=== PATIENT | female | born 1940 | race Caucasian/White ===

== ENCOUNTER → 2016-06-15 | Outpatient (CLI) | payer OTHER ==
[~2016-06-15] MED LIST: BUSP1TAB46 PO; CHOL2000 PO; MULT-506 PO; PANT40TA PO; SUMA50TA15 PO
--- NOTE | 2016-06-15 12:33 | DIAGNOSTIC IMAGING REPORT ---
CHEST 2 VIEWS ROUTINE CLINICAL HISTORY: Persistent cough COMPARISON STUDY: 05/20/2015 FINDINGS: The cardiac and mediastinal contours are normal. There is no evidence of focal pulmonary consolidation. There is no evidence of failure. No pleural effusions are visualized.[ There are postsurgical changes present within the cervical spine IMPRESSION: No active disease in the chest. Electronically signed by: Jose Angel Pond M.D. 06/15/2016 12:31 PM
== END | disposition home or self-care (01) ==
LOC: C.RADBC 12:09
PROVIDERS: ATTEND Internal Medicine Geriatric Medicine
DX: R05 Cough (principal)

== ENCOUNTER → 2016-08-31 | Outpatient (CLI) | payer OTHER ==
[2016-08-31 13:07] LABS: BASO % 0.5 %; BASO ABS # 0.04 K/uL (0-0.2); COMPLETE YES; EOS % 1.3 %; HEMATOCRIT 38.9 % (37-47); IG% 0.2 %; LYMPH % 30.7 %; LYMPH ABS # 2.55 K/uL (1.2-3.4); MEAN CELL VOLUME 92.8 fL (80-100); MEAN CORPUSCULAR HEMOGLOBIN 31.5 pg (25-34); MEAN CORPUSCULAR HGB CONC 33.9 g/dl (32-36); MONO % 10.7 %; NEUT % 56.6 %; PLATELET COUNT 311 K/uL (130-400); RED BLOOD COUNT 4.19 M/uL (4.2-5.4)
[2016-08-31 14:17] LABS: CALCIUM 9.5 mg/dl (8.5-10.1); GLUCOSE 83 mg/dl (70-99)
[2016-08-31 14:18] LABS: BLOOD UREA NITROGEN 18 mg/dl (7-18); BUN/CREATININE RATIO 15.1 (10-20); CARBON DIOXIDE 25 mmol/L (21-32); CHLORIDE 109 mmol/L (98-107); CHOLESTEROL 266 mg/dl (0-200); HDL CHOLESTEROL 67 mg/dl; LDL CHOLESTEROL CALCULATED 161 mg/dl; POTASSIUM 4.1 mmol/L (3.5-5.1); SODIUM 140 mmol/L (136-145); TRIGLYCERIDES 192 mg/dl (0-150); VERY LOW DENSITY LIPOPROT CALC 38 mg/dl
--- NOTE | 2016-09-07 07:52 | CODING QUERY MEDICAL NECESSITY ---
SUPPORTING DIAGNOSIS NEEDED A supporting diagnosis is required for the test/procedure performed on this patient in order for us to be reimbursed by the patient's insurance. Please provide a supporting diagnosis for the following test/procedure listed below next to the test name along with your signature. *If there is no additional diagnosis for this patient that would support the following test/procedure please document that below next to the test/procedure. Test(s)/Procedure(s) that require a supporting diagnosis: DOS 08/31 * Vitamin D DIAGNOSIS: Provider Signature: Date: Thank you Keerthi Maloney Health Information Management Once completed, please kindly fax back to [phone] For questions please call [phone]
== END | disposition home or self-care (01) ==
LOC: C.LABPBG 09:14
PROVIDERS: ATTEND Internal Medicine Geriatric Medicine
DX: M19.90 Unspecified osteoarthritis, unspecified site (principal); D47.2 Monoclonal gammopathy; R35.0 Frequency of micturition; M54.16 Radiculopathy, lumbar region; I10 Essential (primary) hypertension; E04.2 Nontoxic multinodular goiter; M85.80 Other specified disorders of bone density and structure, unspecified site

== ENCOUNTER → 2017-08-11 | Outpatient (CLI) | payer OTHER ==
[2017-08-11 12:31] LABS: BASO % 0.5 %; BASO ABS # 0.04 K/uL (0-0.2); EOS % 1.5 %; EOS ABS # 0.12 K/uL (0-0.5); HEMATOCRIT 38.3 % (37-47); HEMOGLOBIN 12.9 g/dL (12.0-16.0); IG# 0.01 K/uL (0.00-0.02); LYMPH % 37.3 %; MEAN CELL VOLUME 93.9 fL (80-100); MEAN CORPUSCULAR HEMOGLOBIN 31.6 pg (25-34); MEAN CORPUSCULAR HGB CONC 33.7 g/dl (32-36); MEAN PLATELET VOLUME 9.9 fL (7.4-10.4); MONO % 9.8 %; MONO ABS # 0.79 K/uL (0.11-0.59); NEUT % 50.8 %; NEUT ABS # 4.08 K/uL (1.4-6.5); PLATELET COUNT 309 K/uL (130-400); RED CELL DISTRIBUTION WIDTH CV 13.8 % (11.5-14.5); RED CELL DISTRIBUTION WIDTH SD 47.3 fL (36.4-46.3); WHITE BLOOD COUNT 8.04 K/uL (4.8-10.8)
[2017-08-11 13:20] LABS: ALBUMIN 3.9 gm/dl (3.4-5.0); BLOOD UREA NITROGEN 16 mg/dl (7-18); CARBON DIOXIDE 26 mmol/L (21-32); CHOLESTEROL 262 mg/dl (0-200); CREATININE 0.92 mg/dl (0.60-1.20); POTASSIUM 4.1 mmol/L (3.5-5.1); SODIUM 138 mmol/L (136-145)
[2017-08-11 13:22] LABS: CALCIUM 9.3 mg/dl (8.5-10.1); GLUCOSE 81 mg/dl (70-99); TOTAL PROTEIN 8.6 gm/dl (6.4-8.2)
[2017-08-11 13:23] LABS: ALKALINE PHOSPHATASE 83 U/L (45-117); ALT/SGPT 30 U/L (12-78); AST/SGOT 22 U/L (15-37)
[2017-08-11 13:25] LABS: LDL CHOLESTEROL CALCULATED 158 mg/dl
== END | disposition home or self-care (01) ==
LOC: C.LABPBG 09:39
PROVIDERS: ATTEND Internal Medicine Geriatric Medicine
DX: M19.90 Unspecified osteoarthritis, unspecified site (principal); E78.5 Hyperlipidemia, unspecified; G43.909 Migraine, unspecified, not intractable, without status migrainosus; R10.9 Unspecified abdominal pain; I10 Essential (primary) hypertension; D47.2 Monoclonal gammopathy; E04.2 Nontoxic multinodular goiter

== ENCOUNTER → 2017-10-04 | Outpatient (CLI) | payer OTHER ==
[~2017-10-04] MED LIST changes: -BUSP1TAB46 PO; -CHOL2000 PO; +CHOL50006 PO; -PANT40TA PO; +SERT25TA PO; +TRAM-10 PO; +VERA120T15 PO
== END | disposition home or self-care (01) ==
LOC: C.MAMM 08:52
PROVIDERS: ATTEND Physician Assistant
DX: Z00.00 Encounter for general adult medical examination without abnormal findings (principal); M85.852 Other specified disorders of bone density and structure, left thigh

== ENCOUNTER 2019-06-18 05:52 | Inpatient (IN) ==
--- NOTE | 2019-06-07 08:18 | Anesthesiology Consultation ---
Date of Service June 07, 2019 Assessment & Plan (1) Encounter for pre-operative examination: Awaiting review preop testing (labs, CXR). Chart Review Chart Review: Patient seen in Pre Admission Testing Teaching & Discussion Pre-Anesthesia Teaching/Discussion Notes: Instructed NPO after midnight before surgery,except medications with 15 cc of water. Medication instructions provided according to the PAT guidelines. History Surgery Operation Date: 06/18/19 07:30 Proposed Procedures p L5-S1 Posterior Lumbar Interbody Fusion - Maico Najera DO Height/Weight Height: 5 ft Weight: 57.3 kg Allergies Allergy/AdvReac Type Severity Reaction Status Date / Time Iodinated Contrast Media Allergy Intermediate IVP DYE- Verified 06/04/19 08:14 HIVES Tetracyclines Allergy Intermediate HIVES,SWELL Verified 06/04/19 08:14 ING acetaminophen [From Percocet] AdvReac Mild Verified 06/04/19 08:14 adhesive AdvReac Mild BLISTERS Verified 06/04/19 08:14 oxycodone [From Percocet] AdvReac Mild Verified 06/04/19 08:14 alendronate sodium AdvReac dyspepsia Verified 06/04/19 08:14 [From Fosamax] atorvastatin AdvReac myalgias Verified 06/04/19 08:14 cephalexin [From Keflex] AdvReac rash Verified 06/04/19 08:14 duloxetine [From Cymbalta] AdvReac Falls Verified 06/04/19 08:14 lisinopril AdvReac cough Verified 06/04/19 08:14 paroxetine [From Paxil] AdvReac profuse Verified 06/04/19 08:14 sweating risedronate sodium AdvReac dyspepsia Verified 06/04/19 08:14 [From Actonel] rosuvastatin [From Crestor] AdvReac myalgias Verified 06/04/19 08:14 Medications Home Medications Medication Instructions Recorded Confirmed Last Taken cholecalciferol (vitamin D3) 125 5,000 units PO QAM tab 12/18/18 06/04/19 12/18/18 mcg (5,000 unit) tablet tramadol 50 mg tablet 50 mg PO TID PRN #90 tab 12/18/18 06/04/19 Unknown verapamil 120 mg 24 hr 120 mg PO QAM #90 cap 12/18/18 06/04/1912/18/19 capsule,extended release pantoprazole 40 mg tablet,delayed 40 mg PO QAM #90 tab 03/06/19 06/04/19 Unknown release sumatriptan succinate 50 mg tablet 50 mg PO .COMPLEX PRN tab 04/09/19 06/04/19 Unknown pravastatin 10 mg tablet 10 mg PO DAILY #90 tab 04/10/19 06/04/19 Unknown tramadol 50 mg tablet 50 mg PO Q6 PRN #30 tab 05/09/19 06/04/19 Unknown sertraline 50 mg tablet 50 mg PO QAM #30 tab 05/15/19 06/04/19 Unknown Past Medical History Medical History Chronic kidney disease, stage 3 (moderate) Chronic osteoarthritis Depression with anxiety Dyslipidemia (high LDL; low HDL) Gastroesophageal reflux controlled Headache, migraine History of nephrolithiasis History of small bowel obstruction remote hx - s/p surgical intervention Hypertension Irritable bowel syndrome Lumbar disc herniation + radiculopathy MGUS (monoclonal gammopathy of unknown significance) follows with heme/onc (Dr. Saucedo) Multiple thyroid nodules Osteopenia Spinal stenosis Exercise / Class Metabolic Activity III < 4 Walking/Shop/Light housework Past Family History Family History Mother Coronary heart disease Myocardial infarction Father Coronary heart disease Myocardial infarction Sister Diabetes Coronary heart disease Pacemaker Hx of CABG Post-operative nausea and vomiting Past Surgical History Surgical History H/O arthroscopy of knee H/O resection of small bowel History of cervical spinal surgery + hardware present History of colonoscopy History of hernia repair History of hysterectomy History of laparoscopy History of lumbar laminectomy History of toe surgery Rt great toe; hardware present S/P trigger finger release Past Anesthesia History No Hx of Anesthesia Complications (except post-op nausea) and No Family Hx of Anesthesia Complications (except sister with PONV) History of PONV History of PONV (+ nausea) and Hx of Motion Sickness Social History Smoking Status: Never smoker Do You Dip or Chew Tobacco: No Hx Alcohol Use: Yes alcohol intake frequency: holidays/special occasions only Hx Substance Use: No substance use type: does not use Review of Systems Reflux controlled. Patient denies chest pain, shortness of breath, cough, wheezing, palpitations. Physical Exam Vital Signs VITALS BP 120/65 P 87 TEMP 97.8 SP02 95%RA RESP 18 PHYSICAL Full neck and c-spine range of motion. Full TMJ range of motion. TMD 2.5 finger breaths Mallampati Score 2 Dentition: intact, upper right/left sides permanent bridges Lungs: clear throughout to auscultation Cardiac: regular rate and rhythm, no murmurs noted Spine: normal Carotid arteries: negative bruit Extremities: no edema Testing Electrocardiogram Date: 04/09/19 SR at 89bpm. "Unchanged" compared to 07/2018. Stress Test Date: 04/20/19 Type: DSE Normal dobutamine ECHO without evidence of inducible ischemia. Mild to moderate MR. Mild cLVH. 85% MPHR.
--- NOTE | 2019-06-07 08:30 | PAT Medication Instructions ---
Medication Instructions Date of Service June 07, 2019 Home Medications Medication Instructions Recorded pantoprazole 40 mg tablet,delayed 40 mg PO QAM #90 tab 03/06/19 release pravastatin 10 mg tablet 10 mg PO DAILY #90 tab 04/10/19 tramadol 50 mg tablet 50 mg PO Q6 PRN #30 tab 05/09/19 sertraline 50 mg tablet 50 mg PO QAM #30 tab 05/15/19 Continue as directed cholecalciferol (vitamin D3) 125 mcg (5,000 unit) tablet 5,000 units PO QAM tramadol 50 mg tablet 50 mg PO TID PRN verapamil 120 mg 24 hr capsule,extended release 120 mg PO QAM pantoprazole 40 mg tablet,delayed release 40 mg PO QAM sumatriptan succinate 50 mg tablet 50 mg PO .COMPLEX PRN pravastatin 10 mg tablet 10 mg PO DAILY tramadol 50 mg tablet 50 mg PO Q6 PRN sertraline 50 mg tablet 50 mg PO QAM DO NOT take the morning of surgery cholecalciferol (vitamin D3) 125 mcg (5,000 unit) tablet 5,000 units PO QAM Take morning of surgery With a small sip of water, OTHERWISE NOTHING TO EAT OR DRINK AFTER MIDNIGHT: tramadol 50 mg tablet 50 mg PO TID PRN (okay to take up to 4 hours prior to surgery if needed) verapamil 120 mg 24 hr capsule,extended release 120 mg PO QAM pantoprazole 40 mg tablet,delayed release 40 mg PO QAM sumatriptan succinate 50 mg tablet 50 mg PO .COMPLEX PRN (if needed) pravastatin 10 mg tablet 10 mg PO DAILY tramadol 50 mg tablet 50 mg PO Q6 PRN (okay to take up to 4 hours prior to surgery if needed) sertraline 50 mg tablet 50 mg PO QAM Take evening before surgery tramadol 50 mg tablet 50 mg PO TID PRN (if needed) sumatriptan succinate 50 mg tablet 50 mg PO .COMPLEX PRN (if needed) tramadol 50 mg tablet 50 mg PO Q6 PRN (if needed) Other Notes If you have any questions please call us at [phone] or [phone] or [phone] or [phone]
--- NOTE | 2019-06-07 08:55 | XRay Report ---
XR chest Pre-admission PA/Lat CLINICAL HISTORY: 79 years-old Female presenting with preoperative assessment. TECHNIQUE: PA and lateral views of the chest were obtained. COMPARISON: 08/16/2011. FINDINGS: Atherosclerosis of the aortic arch. Cardiac silhouette normal in size. Lungs are hyperinflated. No fo rosa opacity. No pleural effusion or pneumothorax. Anterior cervical fusion hardware. Mild degenerativ e changes of the spine. Upper abdomen normal. IMPRESSION: 1. Hyperinflation could suggest underlying emphysema or other obstructive lung disease versus an exu berant inspiratory effort. No other evidence of acute cardiopulmonary disease. ACT 112: Negative or not required by law. Electronically signed by: Rafael Conde M.D. 06/07/2019 8:54 AM
[2019-06-07 10:15] LABS: Basophils # (auto) 0.03 K/uL (0-0.2); Basophils % (auto) 0.5 %; Hematocrit (blood only) 37.3 % (37-47); Hemoglobin 12.6 g/dL (12.0-16.0); Immature Granulocytes # (auto) 0.01 K/uL (0.00-0.02); Immature Granulocytes % (auto) 0.2 %; Lymphocytes # (auto) 1.98 K/uL (1.2-3.4); Lymphocytes % (auto) 30.1 %; Mean Corpuscular Hemoglobin 31.7 pg (25-34); Mean Corpuscular Hgb Conc 33.8 g/dL (32-36); Mean Platelet Volume 9.8 fL (7.4-10.4); Monocytes # (auto) 0.79 K/uL (0.11-0.59); Neutrophils # (auto) 3.56 K/uL (1.4-6.5); Neutrophils % (auto) 54.2 %; Platelet Count 310 K/uL (130-400); RDW Coefficient of Variation 13.3 % (11.5-14.5); RDW Standard Deviation 46.2 fL (36.4-46.3); Red Blood Count 3.97 M/uL (4.2-5.4); White Blood Count 6.57 K/uL (4.8-10.8)
[2019-06-07 10:27] LABS: BUN Creatinine Ratio 17.1 (10-20); Calcium 9.1 mg/dl (8.5-10.1); Creatinine Clr Calc Pharmacy 35.3 ml/min; Est GFR (African American) 59.6; Est GFR (Non-African American) 51.4; Potassium 3.8 mmol/L (3.5-5.1)
[2019-06-07 10:29] LABS: Partial Thromboplastin Ratio 0.8; Partial Thromboplastin Time 22.9 Seconds (21.0-31.0); Prothrombin Time 10.3 Seconds (9.0-12.0)
--- NOTE | 2019-06-15 09:02 | History and Physical Report ---
DATE OF ADMISSION: 06/15/2019 CHIEF COMPLAINT: Back pain, lower extremity difficulty. Sharp in nature, radiating in nature. ____ ability to ambulate. Ongoing now for several months, refractory to conservative management. PAST MEDICAL HISTORY: Kidney disease, osteoarthritis, anxiety, high cholesterol, reflux, irritable bowel. PAST SURGICAL HISTORY: Numerous including knee surgery, spinal surgery, hernia repair, hysterectomy, laminectomy and toe surgery. FAMILY HISTORY: Coronary artery disease and myocardial infarction. SOCIAL HISTORY: She is , retired, nonsmoker, nonalcohol user. REVIEW OF SYSTEMS: She denies any blurred vision, double vision, tinnitus or vertigo, feeling of malaise. Denies chest pain, palpitations. Denies shortness of breath, wheezing. Denies nausea, vomiting, urgency, frequency. Denies urgency, frequency, dysuria. Her major positive review is musculoskeletal lower extremity difficulty. OBJECTIVE: GENERAL: She is alert, oriented. VITAL SIGNS: Blood pressure 130/80, pulse 80. HEENT: Pupils react to light and accommodation. Ear, nose and throat clear. CARDIAC: Normal S1, S2, no S3. LUNGS: Clear to auscultation. No rales, rhonchi, wheezing. ABDOMEN: Soft, nontender. IMAGES: Demonstrate severely degenerative segment and spondylolisthesis L5-S1. PLAN: Includes a PLIF procedure L5-S1 lumbar spine.
[~2019-06-18 05:52] MED LIST changes: +CEFAZOLIN: ALLERGY NOTED TO ORDERED MEDICATION SCH; -CHOL50006 PO; -MULT-506 PO; -SERT25TA PO; -SUMA50TA15 PO; -TRAM-10 PO; -VERA120T15 PO
[2019-06-18] MEDS ORDERED: SODIUM CHLORIDE 0.9% 1,000 ML IV SCH (06:00)
[2019-06-18] MEDS ORDERED: LR 15ML/HR IV SCH ×2 (06:00)
[2019-06-18] MEDS ORDERED: CLINDAMYCIN 600 MG/54 ML BAG IV SCH (06:00)
[2019-06-18] MEDS ORDERED: ACETAMINOPHEN 1000 MG/100 ML IV IV SCH (06:00)
[2019-06-18] MEDS ORDERED: CEFAZOLIN 2000MG 2,000 MG/15 ML SYR IV SCH (06:00)
[2019-06-18] MEDS ORDERED: ROCURONIUM BROMIDE 10 MG/ML 5 ML VIAL ONE (06:36)
[2019-06-18] MEDS ORDERED: fentaNYL citrate 100 MCG/2 ML VIAL ONE (06:36)
[2019-06-18] MEDS ORDERED: ONDANSETRON INJ 2 MG/ML 2 ML VIAL ONE (06:36)
[2019-06-18] MEDS ORDERED: HYDROmorphone INJ 2 MG/ML SYR/VIAL ONE (06:36)
[2019-06-18] MEDS ORDERED: DEXAMETHASONE SOD INJ 4 MG/ML VIAL ONE (06:36)
[2019-06-18] MEDS ORDERED: SODIUM CHLORIDE 0.9% INJ 10 ML VIAL ONE (06:37)
[2019-06-18] MEDS ORDERED: LARYING-O-JET KIT (LTA) ONE (06:39)
[2019-06-18] MEDS ORDERED: PROMETHAZINE HCL 6.25 MG in SODIUM CHLORIDE 0.9% 50 ML IV PRN (06:58)
[2019-06-18] MEDS ORDERED: HYDROmorphone INJ 2 MG/ML SYR/VIAL IV PRN (06:58)
[2019-06-18] MEDS ORDERED: fentaNYL citrate 100 MCG/2 ML VIAL IV PRN (06:58)
[2019-06-18] MEDS ORDERED: ePHEDrine sulfate 50 MG/ML AMP IV PRN (06:58)
[2019-06-18] MEDS ORDERED: ONDANSETRON INJ 2 MG/ML 2 ML VIAL IV PRN ×2 (06:58→11:04)
[2019-06-18] MEDS ORDERED: ATROPINE SULFATE 0.1 MG/ML 10ML SYR IV PRN (06:58)
[2019-06-18] MEDS ORDERED: BUPIVACAINE/EPINEPHRINE 0.5% MPF 1:200,000 10 ML VIAL ONE (07:12)
[2019-06-18] MEDS ORDERED: GELATIN SPONGE SZ 100 ONE (07:12)
[2019-06-18] MEDS ORDERED: VANCOMYCIN HCL 1000MG/20ML VIAL ONE (07:12)
[2019-06-18] MEDS ORDERED: THROMBIN FOR SOLN 20000 UNIT KIT ONE (07:12)
[2019-06-18] MEDS ORDERED: BACITRACIN INJ 50,000 UNIT VIAL ONE (07:12)
[2019-06-18] MEDS ORDERED: CLINDAMYCIN 600 MG/54 ML D5W IV ONE (07:20)
--- NOTE | 2019-06-18 07:25 | History & Physical Bridge Note ---
Date of Service June 18, 2019 History & Physical Bridge Note I have examined the patient, reviewed the History & Physical and in the interval since the performance of the History & Physical I have noted the following changes of clinical significance: no changes noted
[2019-06-18] MEDS ORDERED: ePHEDrine sulfate 50 MG/ML SYR ONE (08:48)
[2019-06-18] MEDS ORDERED: PHENYLEPHRINE HCL 10 MG/ML VIAL ONE (09:00)
--- NOTE | 2019-06-18 09:37 | Fluoroscopy Report ---
FL spine 1V any level CLINICAL HISTORY: L5-S1 interbody fusion. COMPARISON STUDY: Lumbar spine MRI May 24, 2019. FLUOROSCOPY TIME: 6 seconds. FLUOROSCOPIC IMAGES: 1 FINDINGS: These images demonstrate an L5-S1 discectomy with interbody spacer placement. There are uday ateral pedicle screws at the L5 and S1 levels. IMPRESSION: Fluoroscopic images demonstrating an L5-S1 decompression and bilateral pedicle screw fus ion. ACT 112: Negative or not required by law. Electronically signed by: Joselito Gates M.D. 06/18/2019 9:36 AM
--- NOTE | 2019-06-18 09:51 | Post Operative Brief Note ---
PG Immediate Post Op with CF Date of Surgery June 18, 2019 Pre & Post Diagnosis Operation Date: 06/18/19 07:30 Pre-Op Diagnosis: Spinal Stenosis Post-Op Diagnosis: Spinal Stenosis I identified the patient and participated in the time-out.: Yes Procedure Operation Date: 06/18/19 07:30 Actual Procedures p L5-S1 Posterior Lumbar Interbody Fusion(Not Applicable) - Maico Najera DO Surgeon Maico Najera DO Tray Line Worker Elton minor Estimated Blood Loss 100 Findings Consistent with Post-Op Diagnosis Specimens Specimen Description: No specimen collected per surgeon Drains Montilla Catheter and Hemovac Drain
--- NOTE | 2019-06-18 09:56 | Operative Report ---
PG Post Operative Report Pre & Post Diagnosis Operation Date: 06/18/19 07:30 Pre-Op Diagnosis: Spinal Stenosis Post-Op Diagnosis: Spinal Stenosis I identified the patient and participated in the time-out.: Yes Procedure Operation Date: 06/18/19 07:30 Actual Procedures p L5-S1 Posterior Lumbar Interbody Fusion(Not Applicable) - Maico Najera DO Surgeon Maico Najera DO [employer] Plating Machine Operator Elton minor Estimated Blood Loss 100 Findings Consistent with Post-Op Diagnosis Specimens No specimens Drains Hemovac drain Anesthesia Type General Description of Procedure Patient was taken to the operating room a general intubated anesthetic provided to the patient. Patient was then placed prone on the John table scrubbed prepped draped sterile. Formal timeout taken Made a skin incision fashion incision 5 S1 interspace lumbar spine dissecting the soft tissue in the same plane. Came down over the facet joints and out over the transverse processes and sacral ala. We put in a deep self-retaining retractor. . We then did revision tactics to decompress the neural elements used curette curettes Ann arnold carefully meticulously decompress the spinal canal at L5-S1. Both nerve roots were free of of obstruction. That would be the L5 and S1 nerve roots. Then safely did discectomy on the right-hand side and reamed up to a size 9. We then went to the left-hand side and put on the pedicle screws at L5 and S1 on the left. We then did the pedicle screws on the right-hand side at L5-S1 we used C arm guidance anatomic landmarks carefully placing the screws. In the discectomy site able to get interbody cage into the vacated discectomy measuring 9 mm in height 22 mm in length 8 mm in width. Then connected the screws with a longitudinal becka and locked these down securely Then bone grafted out of the transverse processes and sacral ala completing the 360 fusion. We then began our closure first with 1 Vicryl suture over vancomycin powder and Hemovac drain 2 oh on the subcuticular layer 3-0 nylon on the skin we activated the drain patient was returned safely to recovery room in stable condition. Implants used by the [employer] Bone graft: Morselized autograft and demineralized bone matrix Sponge and needle count correct at the close and there were no complications I attest to the content of the Intraoperative Record and any orders documented therein. Any exceptions are noted below.
--- NOTE | 2019-06-18 10:46 | Anesthesiology Progress Note ---
Date of Service June 18, 2019 Anesthesia Post Procedure Vital Signs Vital Signs: Temp Pulse Pulse Resp BP Pulse Ox 06/18/19 10:35 36.9 C 95 H 19 111/51 L 98 06/18/19 10:25 101 H 14 116/54 L 98 06/18/19 10:15 89 12 114/45 L 96 06/18/19 10:05 36.9 C 96 H 12 117/55 L 96 06/18/19 06:17 36.6 C 76 20 174/73 H 97 Transfer of Care Handoff Completed per policy Notes Mental Status: alert / awake / arousable and participated in evaluation Patient Amnestic to Procedure: Yes Nausea / Vomiting: adequately controlled Pain: adequately controlled Airway Patency, RR, SpO2: stable & adequate BP & HR: stable & adequate Hydration State: stable & adequate Anesthetic Complications: no major complications apparent and Pt Satisfied with anesthetic care
[2019-06-18] MEDS ORDERED: FAMOTIDINE 20 MG TAB PO PRN (11:04)
[2019-06-18] MEDS ORDERED: ALUMINUM/MAGNESIUM SUSP 30 ML UDC PO PRN (11:04)
[2019-06-18] MEDS ORDERED: PROMETHAZINE HCL 12.5 MG in SODIUM CHLORIDE 0.9% 50 ML IV PRN (11:04)
[2019-06-18] MEDS ORDERED: MAGNESIUM HYDROXIDE SUSP 30 ML UDC PO PRN (11:04)
[2019-06-18] MEDS ORDERED: DO NOT ADMINISTER FLU VACCINE PRN (11:04)
[2019-06-18] MEDS ORDERED: NALOXONE HCL 0.4 MG/1 ML VIAL/CARP IV PRN (11:04)
[2019-06-18] MEDS ORDERED: HYDROmorphone INJ 0.5 MG/0.5 ML SYR IV PRN (11:04)
[2019-06-18] MEDS ORDERED: bisacodyL 10 MG SUPP PR PRN (11:04)
[2019-06-18] MEDS ORDERED: DO NOT ADMINISTER PNEUMOCOCCAL VACCINE PRN (11:04)
[2019-06-18] MEDS ORDERED: ACETAMINOPHEN 1,000 MG/100 ML VIAL IV PRN (11:04)
[2019-06-18] MEDS ORDERED: SUMAtriptan succinate 50 MG TAB PO PRN (11:04)
[2019-06-18] MEDS ORDERED: SOD PHOSPHATE/SOD BIPHOSPHATE ENEMA 132 ML BTL PR PRN (11:04)
[2019-06-18] MEDS: KETOROLAC TROMETHAMINE 15 MG/ML VIAL IV SCH ×3 (12:38→23:17)
[2019-06-18] MEDS: LACTATED RINGER'S 1,000 ML IV SCH ×2 (12:41→20:59)
[2019-06-18] MEDS: CLINDAMYCIN 600 MG in DEXTROSE 5% 50 ML IV SCH ×2 (14:22→22:27)
[2019-06-18] MEDS: OXYCODONE HCL IR 5 MG TAB (IMMEDIATE RELEASE) PO PRN ×2 (14:34→20:58)
[2019-06-18] MEDS: DOCUSATE SODIUM/SENNA 50/8.6MG TAB PO SCH (20:54)
[2019-06-19] MEDS: POLYETHYLENE (MIRALAX) 17 GM PACK PO SCH ×4 (05:57→23:42)
[2019-06-19] MEDS: KETOROLAC TROMETHAMINE 15 MG/ML VIAL IV SCH (05:57)
[2019-06-19] MEDS: VERAPAMIL HCL 120 MG TABCR PO SCH (08:43)
[2019-06-19] MEDS: SERTRALINE HCL 50 MG TABLET PO SCH (08:44)
[2019-06-19] MEDS: PRAVASTATIN SOD 10 MG TAB PO SCH (08:44)
[2019-06-19] MEDS: PANTOprazole 40 MG TAB PO SCH (08:44)
--- NOTE | 2019-06-19 10:56 | Anesthesiology Progress Note ---
Date of Service June 19, 2019 Anesthesia Post Procedure Vital Signs Vital Signs: Temp Pulse Pulse Resp BP Pulse Ox 06/19/19 08:41 86 127/67 06/19/19 07:20 37.0 C 72 18 122/67 97 06/19/19 03:10 36.7 C 97 H 16 118/69 93 06/18/19 23:45 36.8 C 97 H 16 119/55 L 97 06/18/19 19:30 36.7 C 102 H 16 137/69 97 06/18/19 14:59 98 H 18 129/68 98 06/18/19 13:38 36.4 C L 97 H 16 120/66 99 06/18/19 12:29 97 H 16 112/61 96 06/18/19 11:41 99 H 16 102/56 L 95 06/18/19 11:05 36.4 C L 99 H 16 100/55 L 94 Pain Intensity Right Hip: Pain Intensity: 3 Notes Mental Status: alert / awake / arousable and participated in evaluation Patient Amnestic to Procedure: Yes Nausea / Vomiting: adequately controlled Pain: adequately controlled Airway Patency, RR, SpO2: stable & adequate BP & HR: stable & adequate Hydration State: stable & adequate Anesthetic Complications: no major complications apparent
[2019-06-19] MEDS: ONDANSETRON 4 MG OD TAB PO PRN ×2 (12:49→23:40)
[2019-06-19] MEDS: DOCUSATE SODIUM/SENNA 50/8.6MG TAB PO SCH (20:03)
[2019-06-19] MEDS: OXYCODONE HCL IR 5 MG TAB (IMMEDIATE RELEASE) PO PRN (23:40)
[2019-06-20] MEDS: POLYETHYLENE (MIRALAX) 17 GM PACK PO SCH (05:19)
[2019-06-20 06:41] VITALS: TEMP 98.1; O2SAT 99
[2019-06-20 07:31] VITALS: BP 117/77; PULSE 80
[2019-06-20] MEDS: SERTRALINE HCL 50 MG TABLET PO SCH (07:33)
[2019-06-20] MEDS: PANTOprazole 40 MG TAB PO SCH (07:33)
[2019-06-20] MEDS: PRAVASTATIN SOD 10 MG TAB PO SCH (07:34)
[2019-06-20] MEDS: VERAPAMIL HCL 120 MG TABCR PO SCH (07:34)
[2019-06-20] MEDS: OXYCODONE HCL IR 5 MG TAB (IMMEDIATE RELEASE) PO PRN (07:34)
--- NOTE | 2019-06-20 08:32 | Discharge Summary ---
Becky is doing well postoperatively. She had a fairly uneventful stay. She had a lumbar fusion L5 to the sacrum. She has no chest pain, shortness of breath. She has soreness, but no significant pain. No radicular pain, no confusion. Her wound clean, dry. She will be discharged home in improved stable condition. She has instruction precautions provided. We will see her back in the office in approximately 10 days. Prescriptions have been called to her pharmacy and she needs to wear a back brace. Use a walker for support and she has a walker at home. All questions answered.
== END 2019-06-20 10:25 | disposition home health service (06) | DRG 455 ==
LOC: ASU 05:52 → 3E 10:06

== ENCOUNTER 2019-11-22 08:47 | Inpatient (IN) ==
--- NOTE | 2019-11-08 14:40 | PAT Medication Instructions ---
Medication Instructions Date of Service November 08, 2019 Home Medications Medication Instructions Recorded tramadol 50 mg PO Q6H PRN #40 tab 06/20/19 pantoprazole 40 mg tablet,delayed 40 mg PO QAM #90 tab 09/03/19 release sertraline 50 mg tablet 50 mg PO QAM #90 tab 10/10/19 sumatriptan succinate 50 mg tablet 50 mg PO .COMPLEX PRN #10 tab 10/10/19 cholecalciferol (vitamin D3) 125 mcg (5,000 unit) tablet 5,000 units PO QAM tramadol 50 mg PO Q6H PRN pantoprazole 40 mg tablet,delayed release 40 mg PO QAM sertraline 50 mg tablet 50 mg PO QAM sumatriptan succinate 50 mg tablet 50 mg PO .COMPLEX PRN pravastatin 10 mg PO QAM verapamil 120 mg PO QAM DO NOT take the morning of surgery cholecalciferol (vitamin D3) 125 mcg (5,000 unit) tablet 5,000 units PO QAM Take morning of surgery With a small sip of water, OTHERWISE NOTHING TO EAT OR DRINK AFTER MIDNIGHT: tramadol 50 mg PO Q6H PRN (okay to take up to 4 hours prior to surgery if needed) pantoprazole 40 mg tablet,delayed release 40 mg PO QAM sertraline 50 mg tablet 50 mg PO QAM sumatriptan succinate 50 mg tablet 50 mg PO .COMPLEX PRN (if needed) pravastatin 10 mg PO QAM verapamil 120 mg PO QAM Take evening before surgery tramadol 50 mg PO Q6H PRN (if needed) sumatriptan succinate 50 mg tablet 50 mg PO .COMPLEX PRN (if needed) Other Notes If you have any questions please call us at [phone] or [phone] or [phone] or [phone]
--- NOTE | 2019-11-13 13:34 | Anesthesiology Consultation ---
Date of Service November 13, 2019 Assessment & Plan (1) Encounter for pre-operative examination: Per PAT assessment on 11/11: Travel screen- Lives in [facility]. No known COVID-19 positive contacts. No history of COVID-19 testing. No current COVID-19 related symptoms. - PCP office visit: 11/08/19: "she is an acceptable risk surgical candidate given her cardiac, pulmonary, Infectious and functional capacity. At this time, patient is medically cleared." Chart Review Chart Review: Acceptable Risk for Surgery and Patient seen in Pre Admission Testing Teaching & Discussion Pre-Anesthesia Teaching/Discussion Notes: Instructed NPO after midnight before surgery,except medications with 15 cc of water. Medication instructions provided according to the PAT guidelines. History Surgery Operation Date: 11/22/19 09:40 Proposed Procedures p L4-L5 Decompression Fusion, L5-S1 Hardware Removal, Spinal Cord Monitoring - Marco A Richard, Height/Weight Height: 5 ft 2 in Weight: 56.1 kg Allergies Allergy/AdvReac Type Severity Reaction Status Date / Time Iodinated Contrast Media Allergy Intermediate IVP DYE- Verified 11/08/19 13:38 HIVES Tetracyclines Allergy Intermediate HIVES,SWELL Verified 11/08/19 13:38 ING cephalexin [From Keflex] Allergy rash Verified 11/08/19 13:38 adhesive AdvReac Mild BLISTERS Verified 11/08/19 13:38 oxycodone [From Percocet] AdvReac Mild Unknown Verified 11/08/19 13:38 alendronate sodium AdvReac dyspepsia Verified 11/08/19 13:38 [From Fosamax] atorvastatin AdvReac myalgias Verified 11/08/19 13:38 duloxetine [From Cymbalta] AdvReac Falls Verified 11/08/19 13:38 lisinopril AdvReac cough Verified 11/08/19 13:38 paroxetine [From Paxil] AdvReac profuse Verified 11/08/19 13:38 sweating risedronate sodium AdvReac dyspepsia Verified 11/08/19 13:38 [From Actonel] rosuvastatin [From Crestor] AdvReac myalgias Verified 11/08/19 13:38 Medications Home Medications Medication Instructions Recorded Confirmed Last Taken cholecalciferol (vitamin D3) 125 5,000 units PO QAM tab 12/18/18 11/08/19 06/17/19 08:00 mcg (5,000 unit) tablet tramadol 50 mg PO Q6H PRN #40 tab 06/20/19 11/08/19 Unknown pantoprazole 40 mg tablet,delayed 40 mg PO QAM #90 tab 09/03/19 11/08/19 Unknown release sertraline 50 mg tablet 50 mg PO QAM #90 tab 10/10/19 11/08/19 Unknown sumatriptan succinate 50 mg tablet 50 mg PO .COMPLEX PRN #10 tab 10/10/19 11/08/19 Unknown pravastatin 10 mg PO QAM 11/08/19 11/08/19 Unknown verapamil 120 mg PO QAM 11/08/19 11/08/19 Unknown Past Medical History Medical History Chronic kidney disease, stage 3 (moderate) Chronic osteoarthritis DDD (degenerative disc disease), lumbosacral Depression with anxiety Dyslipidemia (high LDL; low HDL) Gastroesophageal reflux controlled Headache, migraine History of nephrolithiasis History of small bowel obstruction remote hx - s/p surgical intervention Hypertension Irritable bowel syndrome Lumbar spinal stenosis MGUS (monoclonal gammopathy of unknown significance) follows with heme/onc (Dr. Saucedo) Multiple thyroid nodules Osteopenia Umbilical hernia Exercise / Class Metabolic Activity III < 4 Walking/Shop/Light housework Past Family History Family History Mother Coronary heart disease Myocardial infarction Father Coronary heart disease Myocardial infarction Sister Diabetes Coronary heart disease Pacemaker Hx of CABG Post-operative nausea and vomiting Past Surgical History Surgical History H/O arthroscopy of knee H/O resection of small bowel History of cervical spinal surgery + hardware present History of hernia repair History of hysterectomy History of laparoscopy History of lumbar laminectomy History of toe surgery Rt great toe; hardware present S/P lumbar fusion (06/18/19) lumbar fusion L5-S1 S/P trigger finger release S/P trigger finger release Past Anesthesia History No Hx of Anesthesia Complications (except post-op nausea) and No Family Hx of Anesthesia Complications (except sister also gets post-op nausea) History of PONV History of PONV (+ nausea) and Hx of Motion Sickness Social History Smoking Status: Never smoker Do You Dip or Chew Tobacco: No Hx Alcohol Use: Yes Alcohol type: wine alcohol intake frequency: holidays/special occasions only Hx Substance Use: No substance use type: does not use Review of Systems Controlled reflux. Patient denies chest pain, shortness of breath, fever, chill s, cough, wheezing, palpitations. Physical Exam Vital Signs VITALS BP 137/72 P 86 TEMP 98.4 SP02 98%RA RESP 18 PHYSICAL Full neck and c-spine range of motion. Full TMJ range of motion. TMD 3 finger breaths Mallampati Score 2 Dentition: intact, upper sides bridge Lungs: clear throughout to auscultation Cardiac: regular rate and rhythm, no murmurs noted Spine: normal Carotid arteries: negative bruit Extremities: no edema Testing Laboratory Results 11/13/19 13:50 11/13/19 13:50 PT 10.8 Seconds (9.0-12.0) 11/13/19 13:50 INR 1.0 (0.9-1.1) 11/13/19 13:50 APTT 23.6 Seconds (21.0-31.0) 11/13/19 13:50 Urine Color Yellow 11/13/19 13:50 Urine Appearance Clear (Clear) 11/13/19 13:50 Urine pH 5.0 (4.5-7.5) 11/13/19 13:50 Ur Specific [place] 1.013 (1.000-1.030) 11/13/19 13:50 Urine Protein Negative (Negative) 11/13/19 13:50 Urine Glucose (UA) Negative (Negative) 11/13/19 13:50 Urine Ketones Negative (Negative) 11/13/19 13:50 Urine Nitrite Negative (Negative) 11/13/19 13:50 Ur Leukocyte Esterase Negative (Negative) 11/13/19 13:50 Urine WBC (Auto) 1-5 /hpf (0-5) 11/13/19 13:50 Urine RBC (Auto) 0-4 /hpf (0-4) 11/13/19 13:50 U Hyaline Cast (Auto) 0 /lpf (0-5) 11/13/19 13:50 U Epithel Cells (Auto) 5-10 /lpf (0-5) H 11/13/19 13:50 Urine Bacteria (Auto) Negative (Negative) 11/13/19 13:50 Blood Type A Positive 11/13/19 13:50 Antibody Screen NEGATIVE 11/13/19 13:50 Electrocardiogram Date: 11/08/19 SR at 76bpm. Possible RVCD. Chest X-Ray Date: 06/07/19 Atherosclerosis of the aortic arch. Cardiac silhouette normal in size. Lungs are hyperinflated. No focal opacity. No pleural effusion or pneumothorax. Anterior cervical fusion hardware. Mild degenerative changes of the spine. Upper abdomen normal. IMPRESSION: Hyperinflation could suggest underlying emphysema or other obstructive lung disease versus an exuberant inspiratory effort. No other evidence of acute cardiopulmonary disease. Echocardiogram Date: 04/20/19 Type: DSE Normal dobutamine ECHO without evidence of inducible ischemia. Mild to moderate MR. Mild cLVH. 85% MPHR.
[2019-11-13 14:34] LABS: Basophils # (auto) 0.04 K/uL (0-0.2); Basophils % (auto) 0.5 %; Eosinophils # (auto) 0.11 K/uL (0-0.5); Eosinophils % (auto) 1.3 %; Hematocrit (blood only) 37.9 % (37-47); Hemoglobin 12.6 g/dL (12.0-16.0); Immature Granulocytes # (auto) 0.02 K/uL (0.00-0.02); Immature Granulocytes % (auto) 0.2 %; Lymphocytes # (auto) 2.06 K/uL (1.2-3.4); Lymphocytes % (auto) 24.8 %; Mean Corpuscular Hemoglobin 30.8 pg (25-34); Mean Corpuscular Hgb Conc 33.2 g/dL (32-36); Mean Corpuscular Volume 92.7 fL (80-100); Mean Platelet Volume 10.1 fL (7.4-10.4); Monocytes # (auto) 0.63 K/uL (0.11-0.59); Monocytes % (auto) 7.6 %; Neutrophils # (auto) 5.43 K/uL (1.4-6.5); Neutrophils % (auto) 65.6 %; Platelet Count 317 K/uL (130-400); RDW Coefficient of Variation 14.6 % (11.5-14.5); RDW Standard Deviation 49.4 fL (36.4-46.3); Red Blood Count 4.09 M/uL (4.2-5.4); White Blood Count 8.29 K/uL (4.8-10.8)
[2019-11-13 14:57] LABS: Partial Thromboplastin Ratio 0.8; Partial Thromboplastin Time 23.6 Seconds (21.0-31.0); Prothrombin Time 10.8 Seconds (9.0-12.0)
[2019-11-13 14:58] LABS: Appearance Urine Clear (Clear); Bacteria Urine Automated Negative (Negative); Bilirubin Urine Negative (Negative); Blood Urine 1+ (Negative); Cast Urine Automated 0 /lpf (0-5); Color Urine Yellow; Glucose Urine UA Negative (Negative); Ketones Urine Negative (Negative); Leukocyte Esterase Urine Negative (Negative); Nitrite Urine Negative (Negative); Protein Urine Negative (Negative); RBC Urine Automated 0-4 /hpf (0-4); Specific Gravity Urine 1.013 (1.000-1.030); Urobilinogen Urine Negative (Negative)
[2019-11-13 15:13] LABS: BUN Creatinine Ratio 15.9 (10-20); Calcium 9.8 mg/dl (8.5-10.1); Creatinine Clr Calc Pharmacy 32.5 ml/min; Est GFR (African American) 53.9; Est GFR (Non-African American) 46.5; Potassium 3.4 mmol/L (3.5-5.1)
[~2019-11-22 08:47] MED LIST changes: +ACETAMINOPHEN 500 MG TAB PO SCH; +CEFAZOLIN 1000MG 1,000 MG/7.5 ML SYR IV SCH; -CEFAZOLIN: ALLERGY NOTED TO ORDERED MEDICATION SCH; +CeleBREX 200 MG CAP PO SCH; +GABAPENTIN 300 MG CAP PO SCH; +LR 15ML/HR IV SCH
[2019-11-22] MEDS ORDERED: BUPIVACAINE/EPINEPHRINE 0.25% 1:200,000 30 ML VIAL ONE (09:20)
[2019-11-22] MEDS ORDERED: DEXAMETHASONE SOD INJ 4 MG/ML VIAL ONE (10:00)
[2019-11-22] MEDS ORDERED: ONDANSETRON INJ 2 MG/ML 2 ML VIAL ONE (10:00)
[2019-11-22] MEDS ORDERED: LIDOCAINE HCL 2% 2 ML VIAL/AMP(20MG/ML) INFIL ONE (10:00)
[2019-11-22] MEDS ORDERED: GLYCOPYRROLATE 0.2 MG/ML VIAL ONE (10:00)
[2019-11-22] MEDS ORDERED: PROPOFOL IV EMULSION 10 MG/ML 20 ML VIAL IV ONE (10:01)
[2019-11-22] MEDS ORDERED: NEOSTIGMINE METHYLSULFATE 5 MG/5 ML SYR ONE (10:01)
[2019-11-22] MEDS ORDERED: fentaNYL citrate 100 MCG/2 ML VIAL ONE ×2 (10:01)
[2019-11-22] MEDS ORDERED: MIDAZOLAM HCL 1 MG/ML 2ML VIAL ONE (10:01)
--- NOTE | 2019-11-22 10:42 | History & Physical Bridge Note ---
Date of Service November 22, 2019 History & Physical Bridge Note I have examined the patient, reviewed the History & Physical and in the interval since the performance of the History & Physical I have noted the following changes of clinical significance: no changes noted
--- NOTE | 2019-11-22 10:43 | History & Physical Report ---
Date of Service November 22, 2019 Assessment & Plan (1) Neurogenic claudication due to lumbar spinal stenosis: L4-5 decompression fusion, L5-S1 hardware removal Present on Admission?: Yes History of Present Illness Chief Complaint: Back and leg pain Primary Care Provider: Savannah Lindsey DO This is a 71-year-old female known to me with worsening back and leg pain. After failing extensive course of nonoperative care she is here for surgical invention. Allergies Allergy/AdvReac Type Severity Reaction Status Date / Time Iodinated Contrast Media Allergy Intermediate IVP DYE- Verified 11/22/19 09:28 HIVES Tetracyclines Allergy Intermediate HIVES,SWELL Verified 11/22/19 09:28 ING cephalexin [From Keflex] Allergy rash Verified 11/22/19 09:28 adhesive AdvReac Mild BLISTERS Verified 11/22/19 09:28 oxycodone [From Percocet] AdvReac Mild Unknown Verified 11/22/19 09:28 alendronate sodium AdvReac dyspepsia Verified 11/22/19 09:28 [From Fosamax] atorvastatin AdvReac myalgias Verified 11/22/19 09:28 duloxetine [From Cymbalta] AdvReac Falls Verified 11/22/19 09:28 lisinopril AdvReac cough Verified 11/22/19 09:28 paroxetine [From Paxil] AdvReac profuse Verified 11/22/19 09:28 sweating risedronate sodium AdvReac dyspepsia Verified 11/22/19 09:28 [From Actonel] rosuvastatin [From Crestor] AdvReac myalgias Verified 11/22/19 09:28 Home Medications Home Medications Medication Instructions Recorded Confirmed Type cholecalciferol (vitamin D3) 125 5,000 units PO QAM tab 12/18/18 11/22/19 History mcg (5,000 unit) tablet tramadol 50 mg PO Q6H PRN #40 tab 06/20/19 11/22/19 Rx pantoprazole 40 mg tablet,delayed 40 mg PO QAM #90 tab 09/03/19 11/22/19 Rx release sertraline 50 mg tablet 50 mg PO QAM #90 tab 10/10/19 11/22/19 Rx sumatriptan succinate 50 mg tablet 50 mg PO .COMPLEX PRN #10 tab 10/10/19 11/22/19 Rx pravastatin 10 mg PO QAM 11/08/19 11/22/19 History verapamil 120 mg PO QAM 11/08/19 11/22/19 History Past Med/Surg History Medical History Chronic kidney disease, stage 3 (moderate) Chronic osteoarthritis DDD (degenerative disc disease), lumbosacral Depression with anxiety Dyslipidemia (high LDL; low HDL) Gastroesophageal reflux controlled Headache, migraine History of nephrolithiasis History of small bowel obstruction remote hx - s/p surgical intervention Hypertension Irritable bowel syndrome Lumbar spinal stenosis MGUS (monoclonal gammopathy of unknown significance) follows with heme/onc (Dr. Saucedo) Multiple thyroid nodules Osteopenia Umbilical hernia Surgical History H/O arthroscopy of knee H/O resection of small bowel History of cervical spinal surgery + hardware present History of hernia repair History of hysterectomy History of laparoscopy History of lumbar laminectomy History of toe surgery Rt great toe; hardware present S/P lumbar fusion (06/18/19) lumbar fusion L5-S1 S/P trigger finger release S/P trigger finger release Family History Mother Coronary heart disease Myocardial infarction Father Coronary heart disease Myocardial infarction Sister Diabetes Coronary heart disease Pacemaker Hx of CABG Post-operative nausea and vomiting Social History Preferred Language: [place] Communication Ability: Effective Sketch Artist Required: No Beliefs That Will Affect Care: None marital status: Current Living Situation: Spouse current occupational status: retired Other Information That Helps Us Care for You: No Feels Safe at Home: Yes Safety Concerns: Feels Safe At This Time Smoking Status: Never smoker Do You Dip or Chew Tobacco: No ; Second Hand Exposure: No ; Tobacco Cessation Education Requested by Patient: No Hx Alcohol Use: Yes Alcohol type: wine Alcohol Intake Frequency: Rarely Hx Substance Use: No Seatbelt Use: always Physical Exam Physical Exam: Patient is alert and oriented neurologically intact Heart is regular rate and rhythm Lungs clear to auscultation Results & Data Vital Signs (Past 12 Hours) Vital Signs Temp Pulse Resp BP Pulse Ox 11/22/19 09:32 37.2 C 83 20 149/56 H 96
[2019-11-22] MEDS ORDERED: BACITRACIN INJ 50,000 UNIT VIAL ONE (10:51)
[2019-11-22] MEDS ORDERED: CLINDAMYCIN PHOS 300 MG/2 ML VIAL ONE ×2 (11:25)
[2019-11-22] MEDS ORDERED: PHENYLEPHRINE 100MCG/ML 5ML SYR ONE (11:36)
[2019-11-22] MEDS ORDERED: ePHEDrine sulfate 50 MG/ML AMP ONE (11:37)
[2019-11-22] MEDS ORDERED: FLOSEAL HEMOSTATIC MATRIX 10ML TOP ONE (11:40)
[2019-11-22] MEDS ORDERED: ePHEDrine sulfate 50 MG/ML AMP IV PRN (11:52)
[2019-11-22] MEDS ORDERED: PROMETHAZINE HCL 6.25 MG in SODIUM CHLORIDE 0.9% 50 ML IV PRN (11:52)
[2019-11-22] MEDS ORDERED: HYDROmorphone INJ 2 MG/ML SYR/VIAL IV PRN (11:52)
[2019-11-22] MEDS ORDERED: ONDANSETRON INJ 2 MG/ML 2 ML VIAL IV PRN ×2 (11:52→14:26)
[2019-11-22] MEDS ORDERED: fentaNYL citrate 100 MCG/2 ML VIAL IV PRN (11:52)
[2019-11-22] MEDS ORDERED: ATROPINE SULFATE 0.1 MG/ML 10ML SYR IV PRN (11:52)
--- NOTE | 2019-11-22 13:04 | Operative Report ---
Post Operative Report Pre & Post Diagnosis Operation Date: 11/22/19 10:25 Pre-Op Diagnosis: LUMBAR SPINAL STENOSIS WITH NEUROGENIC CLAUDICATION Post-Op Diagnosis: LUMBAR SPINAL STENOSIS WITH NEUROGENIC CLAUDICATION I identified the patient and participated in the time-out.: Yes Procedure Operation Date: 11/22/19 10:25 Actual Procedures #1 removal of posterior instrumentation L5-S1. 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 #3 lumbar decompression with bilateral medial facetectomies and foraminotomies L3-4 and L4-5. #4 posterior spinal fusion L4-5 L5-S1. #5 placed a posterior instrumentation L4-5 L5-S1. #6 interbody fusion L4-5. #7 placed a peek cage 11 x 22 mm at L4-5. #8 placement locally harvested morselized autograft in the posterior lateral gutters. #9 placement infuse collagen sponge, master graft in the posterior gutters and ostial amp and interbody space. Surgeon Marco A Richard, Senior Environmental Consultant Wanda Mccabe Estimated Blood Loss 50 Findings Consistent with Post-Op Diagnosis Specimens None Indications This is a 79-year-old female presents above-mentioned diagnosis after failing extensive course of nonoperative care is here for the above-mentioned procedure. Description of Procedure Patient was met with identified informed consent obtained. Patient was then taken to the operative suite underwent intubation placed in a prone position the John table on top of the [place] frame. All bony prominences were well-padded eyes inspected to ensure no external pressure placed upon the. This point the lumbar spine was prepped and draped in a normal sterile fashion. Sharp dissection with the assistance of Bovie cautery was performed down to and exposing the lamina and transverse processes of L4 and the instrumentation at L5 and S1 levels bilaterally. I then proceeded move the hardware at L5 and S1 bilaterally exploring the fusion mass noting it to be absent and evidence of nonunion. I then performed a complete laminectomy of L4 partial laminectomy of L3 including bilateral medial facetectomies and foraminotomies addressing severe spinal stenosis. Pedicle screws were then placed in L4-L5 and S1 levels bilaterally with assistance of fluoroscopy appropriately sized becka placed. By way of a transforaminal approach on the right complete discectomy will 4 5 was performed endplates curetted to subcortical bleeding bone and 11 x 22 mm peek cage filled with osteo-bone graft tapped in position. The rods were then locked into final position bilaterally. Transverse processes of L for L5 and sacral ala burred to subcortical bleeding bone. Infuse collagen sponge mass graft local autograft placed in the posterior lateral gutters. 15 round BELKYS drain inserted. The incision was then closed with 1 Vicryl in the fascia 2-0 Vicryl subcutaneously and 4 Monocryl for final skin closure. Steri-Strip sterile dressings placed. Patient waken taken PACU stable condition. Please note Wanda Mccabe present at the entire procedure involved the patient positioning complex portions of the surgery and final skin closure. Lastly spinal cord monitoring was utilized that the procedure no changes noted. I attest to the content of the Intraoperative Record and any orders documented therein. Any exceptions are noted below.
--- NOTE | 2019-11-22 13:11 | Fluoroscopy Report ---
FL lumbar spine 2-3V CLINICAL HISTORY: L4-L5 DECOMPRESSION AND FUSION, L5-S1 HARDWARE REMOVAL COMPARISON STUDY: June 2019 FLUOROSCOPY TIME: 17 seconds. NUMBER OF FLUOROSCOPIC IMAGES: 2 FINDINGS: There are postsurgical changes of L4-5 and L5-S1 discectomies interbody fusions. There is p osterior pedicle screws fixation at the L4-S1 level. IMPRESSION: Intraoperative fluoroscopic spot images revealing postsurgical changes of an L4-S1 spina l decompression and fusion. ACT 112: Negative or not required by law. Electronically signed by: Jose Angel Pond M.D. 11/22/2019 1:10 PM
--- NOTE | 2019-11-22 13:47 | Anesthesiology Progress Note ---
Date of Service November 22, 2019 Anesthesia Post Procedure Vital Signs Vital Signs: Temp Pulse Pulse Resp BP BP Pulse Ox 11/22/19 13:35 88 14 104/48 L 100 11/22/19 13:25 89 15 112/59 L 100 11/22/19 13:18 36.1 C L 95 H 18 128/55 L 100 11/22/19 09:32 37.2 C 83 20 149/56 H 96 Pain Intensity Bilateral Back: Pain Intensity: 8 Transfer of Care Handoff Completed per policy Notes Mental Status: alert / awake / arousable Patient Amnestic to Procedure: Yes Nausea / Vomiting: adequately controlled Pain: adequately controlled Airway Patency, RR, SpO2: stable & adequate BP & HR: stable & adequate Hydration State: stable & adequate Anesthetic Complications: no major complications apparent
[2019-11-22] MEDS ORDERED: ONDANSETRON 4 MG OD TAB PO PRN (14:26)
[2019-11-22] MEDS ORDERED: ACETAMINOPHEN 500 MG TAB PO PRN (14:26)
[2019-11-22] MEDS ORDERED: ACETAMINOPHEN 1,000 MG/100 ML VIAL IV PRN (14:26)
[2019-11-22] MEDS ORDERED: LORazepam 0.5 MG TAB PO PRN (14:26)
[2019-11-22] MEDS ORDERED: SOD PHOSPHATE/SOD BIPHOSPHATE ENEMA 132 ML BTL PR PRN (14:26)
[2019-11-22] MEDS ORDERED: FAMOTIDINE 20 MG TAB PO PRN (14:26)
[2019-11-22] MEDS ORDERED: METOCLOPRAMIDE HCL INJ 5 MG/ML 2 ML VIAL IV PRN (14:26)
[2019-11-22] MEDS ORDERED: LORazepam 0.5 MG/1 ML VIAL IV PRN (14:26)
[2019-11-22] MEDS ORDERED: DO NOT ADMINISTER FLU VACCINE PRN (14:26)
[2019-11-22] MEDS ORDERED: ALUMINUM/MAGNESIUM SUSP 30 ML UDC PO PRN (14:26)
[2019-11-22] MEDS ORDERED: HYDROmorphone INJ 0.5 MG/0.5 ML SYR IV PRN (14:26)
[2019-11-22] MEDS ORDERED: HYDROmorphone INJ 1 MG/ML SYRINGE IV PRN (14:26)
[2019-11-22] MEDS ORDERED: NALOXONE HCL 0.4 MG/1 ML VIAL/CARP IV PRN (14:26)
[2019-11-22] MEDS ORDERED: DO NOT ADMINISTER PNEUMOCOCCAL VACCINE PRN (14:26)
[2019-11-22] MEDS ORDERED: MAGNESIUM HYDROXIDE SUSP 30 ML UDC PO PRN (14:26)
[2019-11-22] MEDS ORDERED: SUMAtriptan succinate 50 MG TAB PO PRN (14:26)
[2019-11-22] MEDS ORDERED: HYDROCODONE/ACETAMOPHEN 5/325MG TAB PO PRN (14:26)
[2019-11-22] MEDS ORDERED: PROMETHAZINE HCL 12.5 MG in SODIUM CHLORIDE 0.9% 50 ML IV PRN (14:26)
[2019-11-22] MEDS ORDERED: bisacodyL 10 MG SUPP PR PRN (14:26)
[2019-11-22] MEDS: CEFAZOLIN: ALLERGY NOTED TO ORDERED MEDICATION SCH ×3 (14:42→14:44)
[2019-11-22] MEDS: SODIUM CHLORIDE 0.9% 1000ML 1,000 ML IV SCH (14:46)
--- NOTE | 2019-11-22 15:30 | Consultation ---
Date of Consultation November 22, 2019 Assessment & Plan (1) Neurogenic claudication due to lumbar spinal stenosis: s/p decompression, removal of loose hardware, fusion L4-S1 doing great, minimal pain, breathing well, no chest pain, no nausea eating and drinking, off of oxygen check labs in the AM d/c planning per ortho (2) Lumbar radiculopathy: resolved this afternoon after having decompression (3) Chronic kidney disease, stage 3 (moderate): check Cr in the morning (4) Depression with anxiety: continue on Zoloft (5) Dyslipidemia (high LDL; low HDL): continue on Pravastatin (6) MGUS (monoclonal gammopathy of unknown significance): follows with Dr. Saucedo check CBC in the morning (7) Hypertension: continue Verapamil (8) Gastroesophageal reflux: continue Protonix History of Present Illness Requesting Physician: Dr. Richard Reason for Consultation: medical management Attending Physician: Marco A Richard, DO History of Present Illness 79 yo female who had repeat lumbar spine surgery today due to ongoing right sided radicular pain and low back pain despite having surgery in June 2019. On exploration, she was found to have loosening of the hardware in L5-S2. Hardware removed, decompression performed on L4-5 and posterior fusion performed from L4-S1. Tolerated surgery well. Minimal EBL. Stable on the floor. No dyspnea, no chest pain, no nausea, no fever. Eating and drinking well. Reviewed past medical and surgical history. Allergies Allergy/AdvReac Type Severity Reaction Status Date / Time Iodinated Contrast Media Allergy Intermediate IVP DYE- Verified 11/22/19 09:28 HIVES Tetracyclines Allergy Intermediate HIVES,SWELL Verified 11/22/19 09:28 ING cephalexin [From Keflex] Allergy rash Verified 11/22/19 09:28 adhesive AdvReac Mild BLISTERS Verified 11/22/19 09:28 oxycodone [From Percocet] AdvReac Mild Unknown Verified 11/22/19 09:28 alendronate sodium AdvReac dyspepsia Verified 11/22/19 09:28 [From Fosamax] atorvastatin AdvReac myalgias Verified 11/22/19 09:28 duloxetine [From Cymbalta] AdvReac Falls Verified 11/22/19 09:28 lisinopril AdvReac cough Verified 11/22/19 09:28 paroxetine [From Paxil] AdvReac profuse Verified 11/22/19 09:28 sweating risedronate sodium AdvReac dyspepsia Verified 11/22/19 09:28 [From Actonel] rosuvastatin [From Crestor] AdvReac myalgias Verified 11/22/19 09:28 Home Medications Home Medications Medication Instructions Recorded Confirmed Type cholecalciferol (vitamin D3) 125 5,000 units PO QAM tab 12/18/18 11/22/19 History mcg (5,000 unit) tablet tramadol 50 mg PO Q6H PRN #40 tab 06/20/19 11/22/19 Rx pantoprazole 40 mg tablet,delayed 40 mg PO QAM #90 tab 09/03/19 11/22/19 Rx release sertraline 50 mg tablet 50 mg PO QAM #90 tab 10/10/19 11/22/19 Rx sumatriptan succinate 50 mg tablet 50 mg PO .COMPLEX PRN #10 tab 10/10/19 11/22/19 Rx pravastatin 10 mg PO QAM 11/08/19 11/22/19 History verapamil 120 mg PO QAM 11/08/19 11/22/19 History Patient History Medical History Chronic kidney disease, stage 3 (moderate) Chronic osteoarthritis DDD (degenerative disc disease), lumbosacral Depression with anxiety Dyslipidemia (high LDL; low HDL) Gastroesophageal reflux controlled Headache, migraine History of nephrolithiasis History of small bowel obstruction remote hx - s/p surgical intervention Hypertension Irritable bowel syndrome Lumbar spinal stenosis MGUS (monoclonal gammopathy of unknown significance) follows with heme/onc (Dr. Saucedo) Multiple thyroid nodules Osteopenia Umbilical hernia Surgical History H/O arthroscopy of knee H/O resection of small bowel History of cervical spinal surgery + hardware present History of hernia repair History of hysterectomy History of laparoscopy History of lumbar laminectomy History of toe surgery Rt great toe; hardware present S/P lumbar fusion (06/18/19) lumbar fusion L5-S1 S/P trigger finger release S/P trigger finger release Family History Mother Coronary heart disease Myocardial infarction Father Coronary heart disease Myocardial infarction Sister Diabetes Coronary heart disease Pacemaker Hx of CABG Post-operative nausea and vomiting Social History Preferred Language: Grenadian Communication Ability: Effective Presser Automatic Required: No Beliefs That Will Affect Care: None marital status: Current Living Situation: Spouse current occupational status: retired Other Information That Helps Us Care for You: No Feels Safe at Home: Yes Safety Concerns: Feels Safe At This Time Smoking Status: Never smoker Do You Dip or Chew Tobacco: No ; Second Hand Exposure: No ; Tobacco Cessation Education Requested by Patient: No Hx Alcohol Use: Yes Alcohol type: wine Alcohol Intake Frequency: Rarely Hx Substance Use: No Seatbelt Use: always Review of Systems Review of Systems: All systems reviewed & are unremarkable except as noted in HPI & below Constitutional: no fever, no sweats, no fatigue and no weakness Respiratory: no cough and no dyspnea Cardiovascular: no chest pain and no edema Gastrointestinal: no abdominal pain, no nausea, no vomiting, no constipation and no diarrhea/loose stools Musculoskeletal: + back pain (post op pain); no radicular pain (resolved on the right) Physical Exam Constitutional: WD/WN, vitals as above Eyes: PERRL, conjunctivae normal, anicteric sclerae ENMT: external ear and nose normal, oropharynx normal Neck: trachea midline, no thyromegaly Respiratory: normal respiratory effort, lungs clear to auscultation Cardiovascular: RRR, no murmur, no edema Gastrointestinal (Abdomen): normal bowel sounds, soft, nontender, no hepatosplenomegaly Musculoskeletal: Head/Neck/Chest: normocephalic, head atraumatic and neck supple Spine: + lumbar spinal tenderness and + paraspinal tenderness Extremities: extremities normal to inspection and strength 5/5 throughout Skin: + incision (midline over lumbar spine) Neurologic: patellar DTR's 2+ bilat, sensation intact and PERRL, EOMI, accommodation nl, no face palsy, no dysarthria Psychiatric: A+Ox3, euthymic affect Lymphatic: no cervical or axillary lymphadenopathy Results & Data ([facility]) Vital Signs (Past 12 Hours) Vital Signs Temp Pulse Pulse Resp BP BP Pulse Ox 11/22/19 15:10 36.7 C 88 16 93/56 L 95 11/22/19 14:37 82 18 105/36 L 98 11/22/19 14:05 36.3 C L 86 18 106/56 L 99 11/22/19 13:55 87 16 102/48 L 99 11/22/19 13:45 36.2 C L 85 17 107/58 L 98 11/22/19 13:35 88 14 104/48 L 100 11/22/19 13:25 89 15 112/59 L 100 11/22/19 13:18 36.1 C L 95 H 18 128/55 L 100 11/22/19 09:32 37.2 C 83 20 149/56 H 96 Medications Administered Current Inpatient Medications Acetaminophen (Tylenol) 1,000 mg PO Q8H PRN PRN Reason: MILD Pain Scale 1,2,3 & Pre PT Stop: 12/22/19 14:25 Hydrocodone Bitart/Acetaminophen ([place] 5/325) 1 - 2 tab PO Q4H PRN PRN Reason: Moderate-Severe Pain & Pre PT Stop: 12/06/19 14:25 Al Hydrox/Mg Hydrox/Simethicone (Maalox) 30 ml PO Q6H PRN PRN Reason: Dyspepsia Stop: 12/22/19 14:25 Bisacodyl (Dulcolax) 10 mg [place] DAILY PRN PRN Reason: Constipation Stop: 12/22/19 14:25 Diphenhydramine HCl (Benadryl Capsule) 25 mg PO Q6H PRN PRN Reason: Allergic Rhinitis/Insomnia Stop: 12/22/19 14:25 Famotidine (Pepcid) 20 mg PO Q12H PRN PRN Reason: Dyspepsia Stop: 12/22/19 14:25 Hydromorphone HCl (Dilaudid) 0.5 mg IV Q3H PRN PRN Reason: MOD pain (scale 4-6) & Pre PT Stop: 12/06/19 14:25 Hydromorphone HCl (Dilaudid) 1 mg IV Q3H PRN PRN Reason: severe pain (scale 7-10) Stop: 12/06/19 14:25 Hydroxyzine HCl (Vistaril) 25 mg PO Q8H PRN PRN Reason: Anxiety Stop: 12/22/19 14:25 Lactated Ringer's (Lr) 1,000 mls @ 15 mls/hr IV .Q24H [place] Stop: 11/23/19 05:59 Last Infusion: 11/22/19 11:08 Dose: Infused Documented by: Lorazepam (Ativan) 0.5 mg in 1 mls @ 0.5 mls/min IV Q8H PRN PRN Reason: Sedation/Anxiety Stop: 12/22/19 14:25 Acetaminophen (Ofirmev) 1,000 mg in 100 mls @ 400 mls/hr IV Q8H PRN PRN Reason: MILD Pain Rating 1,2,3 Stop: 11/23/19 14:25 Clindamycin Phosphate 600 mg/ (Dextrose) 54 mls @ 100 mls/hr IV Q8H [place] Stop: 11/23/19 03:33 Last Infusion: 11/22/19 18:50 Dose: Infused Documented by: Promethazine HCl 12.5 mg/ (Sodium Chloride) 50.5 mls @ 204 mls/hr IV Q6H PRN PRN Reason: Nausea &/or Vomiting Stop: 12/22/19 14:25 Sodium Chloride (Nss 1000ml) 1,000 mls @ 100 mls/hr IV .Q10H [place] Stop: 12/22/19 14:25 Last Admin: 11/22/19 14:46 Dose: 100 mls/hr Documented by: Influenza Virus Vaccine Quadrival (Flu Vaccine, Do Not Administer) 1 ea N/A PRN PRN PRN Reason: Notification Stop: 12/22/19 14:25 Lorazepam (Ativan) 0.5 mg PO Q8H PRN PRN Reason: Sedation/Anxiety Stop: 12/22/19 14:25 Magnesium Hydroxide (Milk Of Magnesia) 30 ml PO DAILY PRN PRN Reason: Constipation Stop: 12/22/19 14:25 Metoclopramide HCl (Reglan) 10 mg IV Q6H PRN PRN Reason: Nausea &/or Vomiting Stop: 12/22/19 14:25 Naloxone HCl (Narcan) 0.1 mg IV Q5M PRN; Protocol PRN Reason: Oversedation/Resp Depression Stop: 12/22/19 14:25 Ondansetron HCl (Zofran) 4 mg IV Q6H PRN PRN Reason: Nausea &/or Vomiting Stop: 12/22/19 14:25 Ondansetron HCl (Zofran Odt) 4 mg PO Q6H PRN PRN Reason: Nausea Stop: 12/22/19 14:25 Pantoprazole Sodium (Protonix) 40 mg PO QAM [facility] Stop: 12/23/19 08:59 Pneumococcal Polyvalent Vaccine (Pneumococcal Vacc, Do Not Administer) 1 ea N/A PRN PRN PRN Reason: Notification Stop: 12/22/19 14:25 Polyethylene Glycol (Miralax Powder Packet) 17 gm PO Q6 [place] Stop: 12/23/19 05:59 Pravastatin Sodium (Pravachol) 10 mg PO QAM [facility] Stop: 12/23/19 08:59 Senna/Docusate Sodium (Senokot S) 2 tab PO HS [place] Stop: 12/22/19 20:59 Last Admin: 11/22/19 20:57 Dose: 2 tab Documented by: Sertraline HCl (Zoloft) 50 mg PO QAM [facility] Stop: 12/23/19 08:59 Sodium Biphosphate/Sodium Phosphate (Fleet Enema) 132 ml [place] ONE PRN PRN Reason: Constipation Stop: 12/22/19 14:25 Sumatriptan Succinate (Imitrex) 50 mg PO PRN PRN PRN Reason: Migraine Headache Stop: 12/22/19 14:25 Tramadol HCl (Ultram) 50 - 100 mg PO Q4H PRN PRN Reason: Moderate-Severe Pain & Pre PT Stop: 12/22/19 14:25 Verapamil HCl (Calan Sr) [facility] Stop: 12/23/19 08:59 Vitamin D (Vitamin D3) 5,000 units PO [facility] Stop: 12/23/19 08:59 PG Care Time/CCT Total # of Minutes Spent Total Time Spent with Patient: Total time spent is greater than 50% in coordination of care (as documented) at patient's floor/unit and/or counseling p atient: Coding Level of Care Code 45199 Initial Inpt Care Lvl 3 Diagnoses Neurogenic claudication due to lumbar spinal stenosis M48.062 Lumbar radiculopathy M54.16 Chronic kidney disease, stage 3 (moderate) N18.3 Depression with anxiety F41.8 Dyslipidemia (high LDL; low HDL) E78.5 MGUS (monoclonal gammopathy of unknown significance) D47.2 Hypertension I10 Gastroesophageal reflux K21.9
[2019-11-22] MEDS: CLINDAMYCIN 600 MG in DEXTROSE 5% 50 ML IV SCH (18:02)
[2019-11-22] MEDS: DOCUSATE SODIUM/SENNA 50/8.6MG TAB PO SCH (20:57)
[2019-11-23] MEDS: SODIUM CHLORIDE 0.9% 1000ML 1,000 ML IV SCH ×3 (00:46→22:50)
[2019-11-23] MEDS: CLINDAMYCIN 600 MG in DEXTROSE 5% 50 ML IV SCH (03:08)
[2019-11-23] MEDS: POLYETHYLENE (MIRALAX) 17 GM PACK PO SCH ×3 (06:01→18:06)
[2019-11-23] MEDS: TRAMADOL HCL 50 MG TABLET PO PRN ×3 (06:04→20:36)
[2019-11-23 06:14] LABS: Basophils # (auto) 0.01 K/uL (0-0.2); Basophils % (auto) 0.1 %; Eosinophils # (auto) 0.02 K/uL (0-0.5); Eosinophils % (auto) 0.1 %; Hemoglobin 9.9 g/dL (12.0-16.0); Immature Granulocytes # (auto) 0.04 K/uL (0.00-0.02); Immature Granulocytes % (auto) 0.3 %; Lymphocytes % (auto) 14.4 %; Mean Corpuscular Hemoglobin 29.6 pg (25-34); Mean Corpuscular Hgb Conc 31.9 g/dL (32-36); Mean Corpuscular Volume 92.5 fL (80-100); Mean Platelet Volume 9.2 fL (7.4-10.4); Monocytes # (auto) 1.18 K/uL (0.11-0.59); Monocytes % (auto) 8.5 %; Neutrophils # (auto) 10.65 K/uL (1.4-6.5); Neutrophils % (auto) 76.6 %; Platelet Count 246 K/uL (130-400); RDW Standard Deviation 47.3 fL (36.4-46.3); Red Blood Count 3.35 M/uL (4.2-5.4)
[2019-11-23 06:52] LABS: BUN Creatinine Ratio 17.1 (10-20); Calcium 8.8 mg/dl (8.5-10.1); Creatinine Clr Calc Pharmacy 40.3 ml/min; Est GFR (Non-African American) 60.4
[2019-11-23] MEDS: VERAPAMIL HCL 120 MG TABCR PO SCH (07:52)
[2019-11-23] MEDS ORDERED: SODIUM CHLORIDE 0.9% 1000ML 500 ML IV ONE (07:58)
[2019-11-23] MEDS: CHOLECALCIFEROL 1,000 UNITS 25 MCG TAB PO SCH (08:42)
[2019-11-23] MEDS: PANTOprazole 40 MG TAB PO SCH (08:43)
[2019-11-23] MEDS: SERTRALINE HCL 50 MG TABLET PO SCH (08:44)
[2019-11-23] MEDS: PRAVASTATIN SOD 10 MG TAB PO SCH (08:44)
--- NOTE | 2019-11-23 09:12 | Hospitalist Progress Note ---
Date of Service November 23, 2019 Assessment & Plan (1) Neurogenic claudication due to lumbar spinal stenosis: s/p decompression, removal of loose hardware, fusion L4-S1 on 11/21 doing great, minimal pain, breathing well, no chest pain, no nausea eating and drinking, off of oxygen WBC up to 13k, all reactive from surgery hb down to 9.9, will repeat at 1400 some light headedness this morning with systolic BP in the 90's, gave 250cc bolus no further fluids, she is drinking water (2) Acute blood loss as cause of postoperative anemia: Hb down to 9.9 from 12, repeat this afternoon has blood in BELKYS drain, was emptied this morning already Dr. Richard will round on her later today (3) Lumbar radiculopathy: some right sided pain this morning, resolved now (4) Chronic kidney disease, stage 3 (moderate): Cr stable this morning, electrolyte stable, making urine (5) Depression with anxiety: continue on Zoloft (6) Dyslipidemia (high LDL; low HDL): continue on Pravastatin (7) MGUS (monoclonal gammopathy of unknown significance): follows with Dr. Saucedo WBC is 13k, Hb 9.9, platelets normal (8) Hypertension: low normal BP, gave extra 250cc bolus of NSS patient knows to drink water, stay well hydrated (9) Gastroesophageal reflux: continue Protonix Admission and Anticipated Discharge Date Admission Date: November 22, 2019 Subjective patient had some pain this AM at 6, but pain is much better now she felt a little light headed with low normal BP, that is better as well, gave 250cc bolus Hb down to 9.9 from 12 pre-op, will repeat H/H today WBC up to 13k, all reactive, no fever BMP shows stable Cr and electrolytes patient is eating and drinking, no dyspnea, no chest pain, no fever, no nausea Review of Systems Review of Systems: All systems reviewed & are unremarkable except as noted in HPI & below Musculoskeletal: + back pain Physical Exam Constitutional: WD/WN, vitals as above Eyes: PERRL, conjunctivae normal, anicteric sclerae ENMT: external ear and nose normal, oropharynx normal Neck: trachea midline, no thyromegaly Respiratory: normal respiratory effort, lungs clear to auscultation Cardiovascular: RRR, no murmur, no edema Gastrointestinal (Abdomen): normal bowel sounds, soft, nontender, no hepatosplenomegaly Musculoskeletal: Head/Neck/Chest: normocephalic, head atraumatic and neck supple Spine: + lumbar spinal tenderness and + paraspinal tenderness Extremities: extremities normal to inspection and strength 5/5 throughout Skin: + incision (midline over lumbar spine) Neurologic: patellar DTR's 2+ bilat, sensation intact and PERRL, EOMI, accommodation nl, no face palsy, no dysarthria Psychiatric: A+Ox3, euthymic affect Lymphatic: no cervical or axillary lymphadenopathy Results & Data Results & Data ([facility]) Vital Signs (Past 12 Hours) Vital Signs Temp Pulse Resp BP Pulse Ox 11/23/19 06:59 36.4 C L 69 16 97/51 L 100 11/23/19 03:04 36.7 C 83 16 94/51 L 96 11/22/19 23:39 36.4 C L 80 16 115/65 98 Laboratory Results Laboratory Results - last 24 hr 11/23/19 11/23/19 06:02 06:02 WBC 13.90 H RBC 3.35 L Hgb 9.9 L Hct 31.0 L MCV 92.5 MCH 29.6 MCHC 31.9 L RDW Std Deviation 47.3 H RDW Coeff of Kin 14.0 Plt Count 246 MPV 9.2 Immature Gran % (Auto) 0.3 Neut % (Auto) 76.6 Lymph % (Auto) 14.4 [place] % (Auto) 8.5 Eos % (Auto) 0.1 Baso % (Auto) 0.1 Immature Gran # (Auto) 0.04 H Neut # (Auto) 10.65 H Lymph # (Auto) 2.00 [place] # (Auto) 1.18 H Eos # (Auto) 0.02 Baso # (Auto) 0.01 Sodium 142 Potassium 4.0 Chloride 112 H Carbon Dioxide 24 Anion Gap 5.0 BUN 16 Creatinine 0.91 Est Cr Clr Drug Dosing 40.3 Est GFR ( Amer) 70.0 Est GFR (Non-Af Amer) 60.4 BUN/Creatinine Ratio 17.1 Glucose 82 Calcium 8.8 Medications Administered Current Inpatient Medications Acetaminophen (Tylenol) 1,000 mg PO Q8H PRN PRN Reason: MILD Pain Scale 1,2,3 & Pre PT Stop: 12/22/19 14:25 Hydrocodone Bitart/Acetaminophen ([place] 5/325) 1 - 2 tab PO Q4H PRN PRN Reason: Moderate-Severe Pain & Pre PT Stop: 12/06/19 14:25 Al Hydrox/Mg Hydrox/Simethicone (Maalox) 30 ml PO Q6H PRN PRN Reason: Dyspepsia Stop: 12/22/19 14:25 Bisacodyl (Dulcolax) 10 mg [place] DAILY PRN PRN Reason: Constipation Stop: 12/22/19 14:25 Diphenhydramine HCl (Benadryl Capsule) 25 mg PO Q6H PRN PRN Reason: Allergic Rhinitis/Insomnia Stop: 12/22/19 14:25 Famotidine (Pepcid) 20 mg PO Q12H PRN PRN Reason: Dyspepsia Stop: 12/22/19 14:25 Hydromorphone HCl (Dilaudid) 0.5 mg IV Q3H PRN PRN Reason: MOD pain (scale 4-6) & Pre PT Stop: 12/06/19 14:25 Hydromorphone HCl (Dilaudid) 1 mg IV Q3H PRN PRN Reason: severe pain (scale 7-10) Stop: 12/06/19 14:25 Hydroxyzine HCl (Vistaril) 25 mg PO Q8H PRN PRN Reason: Anxiety Stop: 12/22/19 14:25 Lorazepam (Ativan) 0.5 mg in 1 mls @ 0.5 mls/min IV Q8H PRN PRN Reason: Sedation/Anxiety Stop: 12/22/19 14:25 Acetaminophen (Ofirmev) 1,000 mg in 100 mls @ 400 mls/hr IV Q8H PRN PRN Reason: MILD Pain Rating 1,2,3 Stop: 11/23/19 14:25 Promethazine HCl 12.5 mg/ (Sodium Chloride) 50.5 mls @ 204 mls/hr IV Q6H PRN PRN Reason: Nausea &/or Vomiting Stop: 12/22/19 14:25 Sodium Chloride (Nss 1000ml) 1,000 mls @ 100 mls/hr IV .Q10H [place] Stop: 12/22/19 14:25 Last Infusion: 11/23/19 05:57 Dose: Infused Documented by: Influenza Virus Vaccine Quadrival (Flu Vaccine, Do Not Administer) 1 ea N/A PRN PRN PRN Reason: Notification Stop: 12/22/19 14:25 Lorazepam (Ativan) 0.5 mg PO Q8H PRN PRN Reason: Sedation/Anxiety Stop: 12/22/19 14:25 Magnesium Hydroxide (Milk Of Magnesia) 30 ml PO DAILY PRN PRN Reason: Constipation Stop: 12/22/19 14:25 Metoclopramide HCl (Reglan) 10 mg IV Q6H PRN PRN Reason: Nausea &/or Vomiting Stop: 12/22/19 14:25 Naloxone HCl (Narcan) 0.1 mg IV Q5M PRN; Protocol PRN Reason: Oversedation/Resp Depression Stop: 12/22/19 14:25 Ondansetron HCl (Zofran) 4 mg IV Q6H PRN PRN Reason: Nausea &/or Vomiting Stop: 12/22/19 14:25 Ondansetron HCl (Zofran Odt) 4 mg PO Q6H PRN PRN Reason: Nausea Stop: 12/22/19 14:25 Pantoprazole Sodium (Protonix) [facility] Stop: 12/23/19 08:59 Last Admin: 11/23/19 08:43 Dose: 40 mg Documented by: Pneumococcal Polyvalent Vaccine (Pneumococcal Vacc, Do Not Administer) 1 ea N/A PRN PRN PRN Reason: Notification Stop: 12/22/19 14:25 Polyethylene Glycol (Miralax Powder Packet) 17 gm PO Q6 [facility] Stop: 12/23/19 05:59 Last Admin: 11/23/19 06:01 Dose: 17 gm Documented by: Pravastatin Sodium (Pravachol) 10 mg PO QAM [facility] Stop: 12/23/19 08:59 Last Admin: 11/23/19 08:44 Dose: 10 mg Documented by: Senna/Docusate Sodium (Senokot S) 2 tab PO HS [facility] Stop: 12/22/19 20:59 Last Admin: 11/22/19 20:57 Dose: 2 tab Documented by: Sertraline HCl (Zoloft) 50 mg PO QAM [facility] Stop: 12/23/19 08:59 Last Admin: 11/23/19 08:44 Dose: 50 mg Documented by: Sodium Biphosphate/Sodium Phosphate (Fleet Enema) 132 ml [place] ONE PRN PRN Reason: Constipation Stop: 12/22/19 14:25 Sumatriptan Succinate (Imitrex) 50 mg PO PRN PRN PRN Reason: Migraine Headache Stop: 12/22/19 14:25 Tramadol HCl (Ultram) 50 - 100 mg PO Q4H PRN PRN Reason: Moderate-Severe Pain & Pre PT Stop: 12/22/19 14:25 Last Admin: 11/23/19 06:04 Dose: 50 mg Documented by: Verapamil HCl (Calan Sr) 120 mg PO QAM [facility] Stop: 12/23/19 08:59 Last Admin: 11/23/19 07:52 Dose: Not Given Documented by: Vitamin D (Vitamin D3) 5,000 units PO QAM [facility] Stop: 12/23/19 08:59 Last Admin: 11/23/19 08:42 Dose: 5,000 units Documented by: PG Care Time/CCT Total # of Minutes Spent Total Time Spent with Patient: Total time spent is greater than 50% in coordination of care (as documented) at patient's floor/unit and/or counseling patient: Coding Level of Care Code 46077 Subseq Hosp Care Lvl 3 Diagnoses Neurogenic claudication due to lumbar spinal stenosis M48.062 Acute blood loss as cause of postoperative anemia D62 Lumbar radiculopathy M54.16 Chronic kidney disease, stage 3 (moderate) N18.3 Depression with anxiety F41.8 Dyslipidemia (high LDL; low HDL) E78.5 MGUS (monoclonal gammopathy of unknown significance) D47.2 Hypertension I10 Gastroesophageal reflux K21.9
--- NOTE | 2019-11-23 12:29 | Orthopedic Progress Note ---
Date of Service November 23, 2019 Assessment & Plan (1) Neurogenic claudication due to lumbar spinal stenosis: This time we will continue physical therapy monitor BELKYS output hopefully discharge home the latter half this weekend. Admission and Anticipated Discharge Date Admission Date: November 22, 2019 Subjective Back pain controlled leg symptoms improved. Physical Exam Physical Exam: Patient is in the chair at the bedside. She is good strength testing. Results & Data ([facility]) Vital Signs (Past 12 Hours) Vital Signs Temp Pulse Resp BP Pulse Ox 11/23/19 06:59 36.4 C L 69 16 97/51 L 100 11/23/19 03:04 36.7 C 83 16 94/51 L 96
[2019-11-23 14:26] LABS: Hematocrit (blood only) 29.3 % (37-47); Hemoglobin 9.8 g/dL (12.0-16.0)
[2019-11-23] MEDS: DOCUSATE SODIUM/SENNA 50/8.6MG TAB PO SCH (20:36)
[2019-11-23] MEDS ORDERED: Nursing to Pharmacy Communication SCH (22:45)
--- NOTE | 2019-11-24 09:56 | Orthopedic Progress Note ---
Date of Service November 24, 2019 Assessment & Plan (1) Neurogenic claudication due to lumbar spinal stenosis: At this time we will continue physical therapy monitor BELKYS output anticipate discharge home tomorrow. Present on Admission?: Yes Admission and Anticipated Discharge Date Admission Date: November 22, 2019 Subjective Back pain controlled leg pain markedly improved. Physical Exam Physical Exam: On exam she is in a chair at the bedside. Is to strength testing. Appears comfortable. Results & Data ([facility]) Vital Signs (Past 12 Hours) Vital Signs Temp Pulse Resp BP BP Pulse Ox 11/24/19 07:00 36.6 C 82 16 103/62 94 11/24/19 00:00 36.8 C 88 16 96/57 L 97
[2019-11-24] MEDS: PANTOprazole 40 MG TAB PO SCH (10:43)
[2019-11-24] MEDS: PRAVASTATIN SOD 10 MG TAB PO SCH (10:43)
[2019-11-24] MEDS: DEXAMETHASONE SOD PHOSPHATE 8 MG in SYRINGE 0 ML IV SCH ×2 (10:43→12:53)
[2019-11-24] MEDS: VERAPAMIL HCL 120 MG TABCR PO SCH (10:43)
[2019-11-24] MEDS: CHOLECALCIFEROL 1,000 UNITS 25 MCG TAB PO SCH (10:44)
[2019-11-24] MEDS: SERTRALINE HCL 50 MG TABLET PO SCH (10:45)
--- NOTE | 2019-11-24 12:12 | Hospitalist Progress Note ---
Date of Service November 24, 2019 Assessment & Plan (1) Neurogenic claudication due to lumbar spinal stenosis: s/p decompression, removal of loose hardware, fusion L4-S1 on 11/21 doing great, minimal pain, breathing well, no chest pain, no nausea eating and drinking, off of oxygen WBC up to 13k on 11/22, all reactive from surgery hb down to 9.9, repeat in the afternoon was 9.8 so it was stable vitals stable stable for d/c from medical standpoint, plans to go home tomorrow (2) Acute blood loss as cause of postoperative anemia: Hb down to 9.9 from 12, repeat in afternoon on 11/22 was 9.8 no signs of excessive bleeding no need to follow h/h further (3) Lumbar radiculopathy: some right sided pain this morning, resolved now (4) Chronic kidney disease, stage 3 (moderate): Cr stable electrolyte stable, making urine (5) Depression with anxiety: continue on Zoloft (6) Dyslipidemia (high LDL; low HDL): continue on Pravastatin (7) MGUS (monoclonal gammopathy of unknown significance): follows with Dr. Saucedo (8) Hypertension: BP stable (9) Gastroesophageal reflux: continue Protonix Admission and Anticipated Discharge Date Admission Date: November 22, 2019 Subjective patient doing great minimal pain, eating well, ambulating in halls no dyspnea vitals stable she is planning for d/c tomorrow Review of Systems Review of Systems: All systems reviewed & are unremarkable except as noted in HPI & below Physical Exam Constitutional: WD/WN, vitals as above Eyes: PERRL, conjunctivae normal, anicteric sclerae ENMT: external ear and nose normal, oropharynx normal Neck: trachea midline, no thyromegaly Respiratory: normal respiratory effort, lungs clear to auscultation Cardiovascular: RRR, no murmur, no edema Gastrointestinal (Abdomen): normal bowel sounds, soft, nontender, no hepatosplenomegaly Musculoskeletal: Head/Neck/Chest: normocephalic, head atraumatic and neck supple Spine: + lumbar spinal tenderness and + paraspinal tenderness Extremities: extremities normal to inspection and strength 5/5 throughout Skin: + incision (midline over lumbar spine) Neurologic: patellar DTR's 2+ bilat, sensation intact and PERRL, EOMI, accommodation nl, no face palsy, no dysarthria Psychiatric: A+Ox3, euthymic affect Lymphatic: no cervical or axillary lymphadenopathy Results & Data Results & Data ([facility]) Vital Signs (Past 12 Hours) Vital Signs Temp Pulse Resp BP Pulse Ox 11/24/19 07:00 36.6 C 82 16 103/62 94 Medications Administered Current Inpatient Medications Acetaminophen (Tylenol) 1,000 mg PO Q8H PRN PRN Reason: MILD Pain Scale 1,2,3 & Pre PT Stop: 12/22/19 14:25 Hydrocodone Bitart/Acetaminophen ([place] 5/325) 1 - 2 tab PO Q4H PRN PRN Reason: Moderate-Severe Pain & Pre PT Stop: 12/06/19 14:25 Al Hydrox/Mg Hydrox/Simethicone (Maalox) 30 ml PO Q6H PRN PRN Reason: Dyspepsia Stop: 12/22/19 14:25 Bisacodyl (Dulcolax) 10 mg TN DAILY PRN PRN Reason: Constipation Stop: 12/22/19 14:25 Diphenhydramine HCl (Benadryl Capsule) 25 mg PO Q6H PRN PRN Reason: Allergic Rhinitis/Insomnia Stop: 12/22/19 14:25 Famotidine (Pepcid) 20 mg PO Q12H PRN PRN Reason: Dyspepsia Stop: 12/22/19 14:25 Hydromorphone HCl (Dilaudid) 0.5 mg IV Q3H PRN PRN Reason: MOD pain (scale 4-6) & Pre PT Stop: 12/06/19 14:25 Hydromorphone HCl (Dilaudid) 1 mg IV Q3H PRN PRN Reason: severe pain (scale 7-10) Stop: 12/06/19 14:25 Hydroxyzine HCl (Vistaril) 25 mg PO Q8H PRN PRN Reason: Anxiety Stop: 12/22/19 14:25 Lorazepam (Ativan) 0.5 mg in 1 mls @ 0.5 mls/min IV Q8H PRN PRN Reason: Sedation/Anxiety Stop: 12/22/19 14:25 Promethazine HCl 12.5 mg/ (Sodium Chloride) 50.5 mls @ 204 mls/hr IV Q6H PRN PRN Reason: Nausea &/or Vomiting Stop: 12/22/19 14:25 Dexamethasone Sodium Phosphate (8 mg/ Syringe) 2 mls @ 1 mls/min IV DAILY AUGUSTO Stop: 12/24/19 08:59 Influenza Virus Vaccine Quadrival (Flu Vaccine, Do Not Administer) 1 ea N/A PRN PRN PRN Reason: Notification Stop: 12/22/19 14:25 Lorazepam (Ativan) 0.5 mg PO Q8H PRN PRN Reason: Sedation/Anxiety Stop: 12/22/19 14:25 Magnesium Hydroxide (Milk Of Magnesia) 30 ml PO DAILY PRN PRN Reason: Constipation Stop: 12/22/19 14:25 Metoclopramide HCl (Reglan) 10 mg IV Q6H PRN PRN Reason: Nausea &/or Vomiting Stop: 12/22/19 14:25 Naloxone HCl (Narcan) 0.1 mg IV Q5M PRN; Protocol PRN Reason: Oversedation/Resp Depression Stop: 12/22/19 14:25 Ondansetron HCl (Zofran) 4 mg IV Q6H PRN PRN Reason: Nausea &/or Vomiting Stop: 12/22/19 14:25 Ondansetron HCl (Zofran Odt) 4 mg PO Q6H PRN PRN Reason: Nausea Stop: 12/22/19 14:25 Pantoprazole Sodium (Protonix) [facility] [place] Stop: 12/23/19 08:59 Last Admin: 11/24/19 10:43 Dose: 40 mg Documented by: Pneumococcal Polyvalent Vaccine (Pneumococcal Vacc, Do Not Administer) 1 ea N/A PRN PRN PRN Reason: Notification Stop: 12/22/19 14:25 Pravastatin Sodium (Pravachol) 10 mg PO QAM [facility] Stop: 12/23/19 08:59 Last Admin: 11/24/19 10:43 Dose: 10 mg Documented by: Senna/Docusate Sodium (Senokot S) [address] [facility] Stop: 12/22/19 20:59 Last Admin: 11/23/19 20:36 Dose: 2 tab Documented by: Sertraline HCl (Zoloft) 50 mg PO QAM [facility] Stop: 12/23/19 08:59 Last Admin: 11/24/19 10:45 Dose: 50 mg Documented by: Sodium Biphosphate/Sodium Phosphate (Fleet Enema) 132 ml TN ONE PRN PRN Reason: Constipation Stop: 12/22/19 14:25 Sumatriptan Succinate (Imitrex) 50 mg PO PRN PRN PRN Reason: Migraine Headache Stop: 12/22/19 14:25 Tramadol HCl (Ultram) 50 - 100 mg PO Q4H PRN PRN Reason: Moderate-Severe Pain & Pre PT Stop: 12/22/19 14:25 Last Admin: 11/23/19 20:36 Dose: 100 mg Documented by: Verapamil HCl (Calan Sr) 120 mg PO QAM [facility] Stop: 12/23/19 08:59 Last Admin: 11/24/19 10:43 Dose: Not Given Documented by: Vitamin D (Vitamin D3) 5,000 units PO QAM [facility] Stop: 12/23/19 08:59 Last Admin: 11/24/19 10:44 Dose: 5,000 units Documented by: PG Care Time/CCT Total # of Minutes Spent Total Time Spent with Patient: Total time spent is greater than 50% in coordination of care (as documented) at patient's floor/unit and/or counseling patient: Coding Level of Care Code 27161 Subseq Hosp Care Lvl 2 Diagnoses Neurogenic claudication due to lumbar spinal stenosis M48.062 Acute blood loss as cause of postoperative anemia D62 Lumbar radiculopathy M54.16 Chronic kidney disease, stage 3 (moderate) N18.3 Depression with anxiety F41.8 Dyslipidemia (high LDL; low HDL) E78.5 MGUS (monoclonal gammopathy of unknown significance) D47.2 Hypertension I10 Gastroesophageal reflux K21.9
[2019-11-24] MEDS: DOCUSATE SODIUM/SENNA 50/8.6MG TAB PO SCH (20:24)
[2019-11-25] MEDS: CHOLECALCIFEROL 1,000 UNITS 25 MCG TAB PO SCH (07:58)
[2019-11-25] MEDS: PRAVASTATIN SOD 10 MG TAB PO SCH (07:59)
[2019-11-25] MEDS: DEXAMETHASONE SOD PHOSPHATE 8 MG in SYRINGE 0 ML IV SCH (07:59)
[2019-11-25] MEDS: VERAPAMIL HCL 120 MG TABCR PO SCH (07:59)
[2019-11-25] MEDS: PANTOprazole 40 MG TAB PO SCH (07:59)
[2019-11-25] MEDS: SERTRALINE HCL 50 MG TABLET PO SCH (07:59)
--- NOTE | 2019-11-25 10:37 | Discharge Summary ---
Date of Service November 25, 2019 Admission HPI Per Admitting Provider This is a 71-year-old female known to me with worsening back and leg pain. After failing extensive course of nonoperative care she is here for surgical invention. Principal Diagnosis Lumbar spinal stenosis with neurogenic claudication Discharge Data Allergies Allergy/AdvReac Type Severity Reaction Status Date / Time Iodinated Contrast Media Allergy Intermediate IVP DYE- Verified 11/22/19 09:28 HIVES Tetracyclines Allergy Intermediate HIVES,SWELL Verified 11/22/19 09:28 ING cephalexin [From Keflex] Allergy rash Verified 11/22/19 09:28 adhesive AdvReac Mild BLISTERS Verified 11/22/19 09:28 oxycodone [From Percocet] AdvReac Mild Unknown Verified 11/22/19 09:28 alendronate sodium AdvReac dyspepsia Verified 11/22/19 09:28 [From Fosamax] atorvastatin AdvReac myalgias Verified 11/22/19 09:28 duloxetine [From Cymbalta] AdvReac Falls Verified 11/22/19 09:28 lisinopril AdvReac cough Verified 11/22/19 09:28 paroxetine [From Paxil] AdvReac profuse Verified 11/22/19 09:28 sweating risedronate sodium AdvReac dyspepsia Verified 11/22/19 09:28 [From Actonel] rosuvastatin [From Crestor] AdvReac myalgias Verified 11/22/19 09:28 Consultations 11/22/19 14:26 Consult Case Management - Discharge Planning Routine Consult Hospitalist Routine Procedures Performed Operation Date: 11/22/19 10:25 Actual Procedures p L4-L5 Decompression, L4-L5, L5-S1 Fusion, L4-L5 Interbody Fusion, Spinal Cord Monitoring(Not Applicable) - Marco A Richard DO s L5-S1 Hardware Removal, (Not Applicable) - Marco A Richard DO Ordered Studies 11/22/19 10:25 FL fluoroscopy <1hr Routine FL lumbar spine 2-3V Routine Hospital Course (1) Neurogenic claudication due to lumbar spinal stenosis: Patient underwent lumbar decompression fusion tolerated this well was taken to the orthopedic floor postoperatively. Postop day 1 she was up and ambulating progressed to postop day #2 on postop day 3 pain was well controlled. Strength intact. BELKYS drain decreasing appropriately. Subsequently discharged home. Discharge orders and instructions found the chart for further review. Total Time Total Time Spent Total Time Spent (In Minutes): 20 minutes Discharge Plan Discharge Items Patient Disposition: Home - Self-Care Reason For Visit: LUMBAR SPINAL STENOSIS W NEUROGENIC CLAUDICATION Discharge Diagnosis: Lumbar spinal stenosis with neurogenic claudication Activity: As commented below Non-emergency contact: Primary Care Provider Call non-emergency contact if: you have any medication questions Follow-up/Referrals: Savannah Lindsey DO [Primary Care Provider] - Diet: Regular Addtl Attending Provider Instructions: ACTIVITY RECOMMENDATIONS: SELF CARE INSTRUCTIONS AFTER THORACIC/LUMBAR FUSIONS 1. You may walk to your tolerance. It is good exercise for your legs and back. Expect some back and intermittent leg aches and pains. 2. You may perform "counter-top" level activities (make a sandwich, oziel with a project, etc.). 3. No bending or lifting of more than 10 pounds or back twisting of any nature (roll like a log when turning in bed). 4. You may ride in a car for 20-30 minutes at a time. No driving until after your first visit with your doctor. 5. Frequent changes of position and restricting sitting to 30 minutes at a time will help limit the amount of back spasms and stiffness you may experience. 6. You may discontinue the use of ambulatory aids (cane, crutches, etc.) once your strength and confidence allow. 7. You may skin toggler the shower and let water strike your incision when you arrive home at least once daily. Do not take a tub bath, sit in a hot tub or go into a swimming pool until after your first recheck in the office. SPECIAL CARE INSTRUCTIONS: VERY IMPORTANT TO READ AND REVIEW A. Your surgical incision has been closed with a cosmetic suture under the skin that will dissolve in about 6 weeks. In 14 days, you can use a pair of clean scissors and cut the suture that is left outside of the skin at the ends of your incision. 1. The small skin tapes can be removed 7 days after surgery if they have not fallen off by that point. 2. You may keep the wound open to air as much as possible to promote healing after post-op day number 5 unless told otherwise by your doctor. 3. If you think the wound looks like it is becoming infected (redness or worsening drainage) and/or you are experiencing fever, chill or worsening back pain and muscle spasms, contact the office so that we may evaluate you as soon as possible. B. Complications are uncommon, but please contact us if you have any signs or symptoms of: 1. wound infection (fever higher than 102.5 degrees F, redness, separation of wound, drainage, or increasing pain from the incision) 2. blood clots in legs (pain, swelling, redness and warmth in legs) 3. urinary tract infection (fever higher than 102.5 degrees F, burning upon urination or increased frequency of urination) 4. nerve problems (inability to walk on your toes or heels, numbness, loss of bowel or bladder control) 5. any other symptoms that concern you C. Please call the office at if you have any concerns or questions about your operation or recovery. D. No smoking! Smoking drastically decreases the chance of a solid fusion. E. Do not take any anti-inflammatory medications (Indocin, Advil, Motrin, Aspirin, Naprosyn, etc.) as these may inhibit the chance of a solid fusion. Tylenol is okay to take for pain. MANAGING PAIN AFTER SPINAL SURGERY 1. Narcotic medication is intended for short-term use and will be provided for surgical pain. Surgical pain usually lasts for a period of 4-6 weeks. Narcotic medication includes Percocet, Vicodin, Darvocet, Tylenol #3 or Lortab. 2. Longer-term pain is more appropriately treated with non-narcotic medication such as Tylenol ES. 3. Muscle spasm is not appropriately treated with narcotics. Muscle relaxers such as Soma, Flexeril or Skelaxin can be used along with Tylenol ES. 4. Remember that we all live with some "aches and pains". This is not unusual or uncommon after an injury or as we get older. a. Back pain is expected and may include muscle spasms for 4 to 6 weeks after surgery. The pain should gradually improve. If the pain worsens for no apparent reason, please contact the office. b. Intermittent leg pain may also be experienced and should not be concerned about unless it worsens for no apparent reason. If so, please contact the office. 5. We will provide appropriate medication within the normal guidelines of their prescribed use. We will also be very cautious and aware of potential abuse and extended duration of patients' medication needs. a. Pain medications are for your comfort and to assist with sleep and rest so that the tissue can heal. They are not provided in order to return to normal activity and should not be used through the day. To do so or worsening pain at night can result from ongoing tissue damage and development of tolerance to the prescribed medicine. 6. Please allow 2-3 days to process refills. Prescriptions will not be mailed but must be picked up at the office. FOLLOW UP VISIT: Keep your scheduled follow-up appointment. Any questions, please call the office at . Pending Studies at Discharge: No Stand-Alone Forms: [facility], Sm[facility] Cessation Medications and DC Order Prescriptions: New hydrocodone-acetaminophen 5-325 mg tablet See Rx Instructions .ROUTE .COMPLEX PRN (Reason: pain) Qty: 20 RF: 0 tramadol 50 mg tablet 50 mg PO Q6H PRN (Reason: pain, moderate) Qty: 30 RF: 0 Continued pantoprazole 40 mg tablet,delayed release (DR/EC) 40 mg PO QAM Qty: 90 RF: 1 cholecalciferol (vitamin D3) 5,000 unit tablet 5,000 units PO QAM RF: 0 sumatriptan succinate 50 mg tablet 50 mg PO .COMPLEX PRN (Reason: Migraine Headache) Qty: 10 RF: 1 sertraline 50 mg tablet 50 mg PO QAM Qty: 90 RF: 1 tramadol 50 mg tablet 50 mg PO Q6H PRN (Reason: pain) Qty: 40 RF: 0 pravastatin 10 mg tablet 10 mg PO QAM RF: 0 verapamil 120 mg capsule,ext rel. pellets 24 hr 120 mg PO QAM RF: 0 Discharge Orders: Discharge Order (Routine); Ordered 11/25/19 Ordered By: Marco A Richard Admission Data Admit Date/Time: 11/22/19 13:23 Attending Provider: Marco A Richard Admit Provider: Marco A Richard Primary Care Provider: Savannah Lindsey. Other Providers: Charles Serrano
== END 2019-11-25 13:30 | disposition home or self-care (01) | DRG 454 ==
LOC: ASU 08:47 → 3E 13:23

== ENCOUNTER 2021-03-02 08:08 | Inpatient (IN) ==
--- NOTE | 2021-02-02 08:37 | PAT Medication Instructions ---
Medication Instructions Date of Service February 02, 2021 Home Medications Medication Instructions Recorded tramadol 50 mg tablet 50 mg PO Q6H PRN #40 tab 04/25/20 verapamil 120 mg 24 hr 120 mg PO QAM #90 cap 05/20/20 capsule,extended release cholecalciferol (vitamin D3) 125 mcg (5,000 unit) tablet 5,000 units PO QAM tramadol 50 mg tablet 50 mg PO Q6H PRN verapamil 120 mg 24 hr capsule,extended release 120 mg PO QAM acetaminophen 500 mg tablet (Tylenol Extra Strength) 1,000 mg PO Q6H PRN sumatriptan succinate 50 mg tablet 50 mg PO Q2H PRN Vitafusion Otc 2 tab PO QAM donepezil 10 mg tablet 10 mg PO QAM sertraline 50 mg tablet (Zoloft) 75 mg PO QAM STOP taking 2 weeks before surgery (or as soon as possible if surgery is within 2 weeks) Vitafusion Otc 2 tab PO QAM DO NOT take the morning of surgery cholecalciferol (vitamin D3) 125 mcg (5,000 unit) tablet 5,000 units PO QAM Take morning of surgery With a small sip of water, OTHERWISE NOTHING TO EAT OR DRINK AFTER MIDNIGHT: tramadol 50 mg tablet 50 mg PO Q6H PRN (okay to take up to 4 hours prior to surgery if needed) verapamil 120 mg 24 hr capsule,extended release 120 mg PO QAM acetaminophen 500 mg tablet (Tylenol Extra Strength) 1,000 mg PO Q6H PRN (okay to take up to 4 hours prior to surgery if needed) sumatriptan succinate 50 mg tablet 50 mg PO Q2H PRN (if needed) donepezil 10 mg tablet 10 mg PO QAM sertraline 50 mg tablet (Zoloft) 75 mg PO QAM Take evening before surgery tramadol 50 mg tablet 50 mg PO Q6H PRN (if needed) acetaminophen 500 mg tablet (Tylenol Extra Strength) 1,000 mg PO Q6H PRN (if needed) sumatriptan succinate 50 mg tablet 50 mg PO Q2H PRN (if needed) Other Notes If you have any questions please call us at [phone] or [phone] or [phone] or [phone]
--- NOTE | 2021-02-11 09:11 | Anesthesiology Consultation ---
Date of Service February 11, 2021 Assessment & Plan (1) Encounter for pre-operative examination: - COVID screening: Per assessment on 02/11: Travel screen negative, no known COVID-19 positive contacts or current COVID-19 related symptoms. Patient vacci nated. Surgeon arranging preop COVID testing. Awaiting results. - S/P L4-L5 decompression fusion, L5-S1 hardware removal (11/22/19): Grade view 2, MAC #3, ETT 7.0 at [facility] - Cardiology office visit (09/15/20): "Chest discomfort: Her discomfort is atypical. It appears to only occur with emotional stress and is not associated with exertion. Recent work-up in the ER, including cardiac enzymes and ECG, was normal after a fairly prolonged episode of discomfort. Her last ischemic evaluation was in April 2019. Will perform a repeat stress test to more definitively rule out ischemia. She states that she will be able to walk on a treadmill, and will therefore arrange for a stress echo. She was advised to hold verapamil the morning of the study to ensure she reaches target.. Mitral regurgitation: Mild to moderate MR by most recent echo in 04/2019. This will be reevaluated with the resting portion of her stress test.. Hypertension: Systolic BP mildly elevated today. No changes at this time.. Dyslipidemia: Managed by PCP." Stress echo done 09/24/20 was unremarkable and patient advised to f/u in one year. Chart Review Chart Review: Acceptable Risk for Surgery (pending surgeon-ordered PCP clearance) and Patient seen in Pre Admission Testing Teaching & Discussion Pre-Anesthesia Teaching/Discussion Notes: Instructed NPO after midnight before surgery,except medications with 15 cc of water. Medication instructions provide d according to the PAT guidelines. History Surgery Operation Date: 03/02/21 10:05 Proposed Procedures p L3-L4 Decompression, L2-L3 Fusion, Spinal Cord Monitoring - Marco A Richard DO Height/Weight Height: 5 ft 2 in Weight: 53.4 kg Allergies Allergy/AdvReac Type Severity Reaction Status Date / Time Iodinated Contrast Media Allergy Intermediate IVP dye- Verified 02/04/21 14:48 hives Tetracyclines Allergy Intermediate Hives, Verified 02/04/21 14:48 swelling adhesive Allergy Mild Blisters Verified 02/04/21 14:48 (bandaids/tape for long period) cephalexin [From Keflex] Allergy Unknown Rash Verified 02/04/21 14:48 oxycodone [From Percocet] AdvReac Mild Unknown Verified 01/16/21 15:36 alendronate sodium AdvReac Unknown Dyspepsia Verified 02/04/21 14:48 [From Fosamax] atorvastatin AdvReac Unknown Myalgias Verified 02/04/21 14:48 duloxetine [From Cymbalta] AdvReac Unknown Falls Verified 01/16/21 15:36 lisinopril AdvReac Unknown Cough Verified 02/04/21 14:48 paroxetine [From Paxil] AdvReac Unknown Profuse Verified 02/04/21 14:48 sweating risedronate sodium AdvReac Dyspepsia Verified 02/04/21 14:48 [From Actonel] rosuvastatin [From Crestor] AdvReac Myalgias Verified 02/04/21 14:48 Medications Home Medications Medication Instructions Recorded Confirmed Last Taken cholecalciferol (vitamin D3) 125 5,000 units PO QAM tab 12/18/18 01/16/21 09/08/20 mcg (5,000 unit) tablet tramadol 50 mg tablet 50 mg PO Q6H PRN #40 tab 04/25/20 01/16/21 08/12/20 verapamil 120 mg 24 hr 120 mg PO QAM #90 cap 05/20/20 01/16/21 09/08/20 capsule,extended release acetaminophen 500 mg tablet 1,000 mg PO Q6H PRN 08/13/20 01/16/21 08/12/20 (Tylenol Extra Strength) 1500 mg sumatriptan succinate 50 mg tablet 50 mg PO Q2H PRN 08/13/20 01/16/21 08/12/20 Vitafusion Otc 2 tab PO QAM 01/16/21 01/16/21 Unknown donepezil 10 mg tablet 10 mg PO QAM 01/16/21 01/16/21 Unknown sertraline 50 mg tablet (Zoloft) 75 mg PO QAM 01/16/21 01/16/21 Unknown Past Medical History Medical History Chronic kidney disease, stage 3 (moderate) Chronic osteoarthritis DDD (degenerative disc disease), lumbosacral Depression with anxiety Dyslipidemia (high LDL; low HDL) Gastroesophageal reflux controlled Headache, migraine History of nephrolithiasis History of small bowel obstruction remote hx - s/p surgical intervention Hypertension Irritable bowel syndrome Lumbar spinal stenosis MGUS (monoclonal gammopathy of unknown significance) follows with heme/onc (Dr. Saucedo) Mild cognitive impairment Multiple thyroid nodules Osteopenia Poor historian Umbilical hernia Exercise / Class Metabolic Activity II 4-5 Yardwork/Stairs/Walk up hill (one FS (no CP, no SOB)) Past Family History Family History Mother Coronary heart disease Myocardial infarction Father Coronary heart disease Myocardial infarction Sister Diabetes Coronary heart disease Pacemaker Hx of CABG Post-operative nausea and vomiting Denies family history of Ovarian cancer Prostate cancer Breast cancer Colorectal cancer Past Surgical History Surgical History H/O arthroscopy of knee H/O resection of small bowel History of cervical spinal surgery + hardware present History of colonoscopy History of hernia repair History of hysterectomy History of laparoscopy History of lumbar laminectomy History of toe surgery Rt great toe; hardware present S/P trigger finger release Status post lumbar surgery L4-L5 decompression fusion, L5-S1 hardware removal (11/22/19): Grade view 2, MAC #3, ETT 7.0 at [facility] Past Anesthesia History No Hx of Anesthesia Complications and No Family Hx of Anesthesia Complications History of PONV History of PONV and Hx of Motion Sickness Social History Smoking Status: Never smoker Do You Dip or Chew Tobacco: No Hx Alcohol Use: Yes Alcohol type: wine alcohol intake frequency: holidays/special occasions only Hx Substance Use: No substance use type: does not use Review of Systems Patient denies chest pain, shortness of breath, dyspnea on exertion, fever, chills, cough, wheezing, palpitations. Physical Exam Vital Signs VITALS BP 143/77 P 82 TEMP 98.5 SP02 96%RA RESP 18 PHYSICAL Full cervical extension range of motion. Full TMJ range of motion. TMD 3 finger breaths Mallampati Score 2 Dentition: intact, upper sides R/L bridges Lungs: clear throughout to auscultation Cardiac: regular rate and rhythm, no murmurs noted Spine: normal Carotid arteries: negative bruit Extremities: no edema Lab Results Anesthesia Preop Results Results Anesthesia Widget: WBC 7.59 K/uL (4.8-10.8) 02/11/21 Hgb 12.8 g/dL (12.0-16.0) 02/11/21 Hct 37.9 % (37-47) 02/11/21 Plt 277 K/uL (130-400) 02/11/21 Na 140 mmol/L (136-145) 02/11/21 K 4.2 mmol/L (3.5-5.1) 02/11/21 Cl 111 mmol/L (98-107) H 02/11/21 CO2 26 mmol/L (21-32) 02/11/21 BUN 22 mg/dl (7-18) H 02/11/21 Creat 0.85 mg/dl (0.6-1.2) 02/11/21 Glucose Level 84 mg/dl (70-99) 02/11/21 PT 10.2 Seconds (9.0-12.0) 02/11/21 PTT 22.8 Seconds (21.0-31.0) 02/11/21 INR 1.0 (0.9-1.1) 02/11/21 Urine Color Yellow 02/11/21 Urine Appearance Clear (Clear) 02/11/21 Urine pH 5.5 (4.5-7.5) 02/11/21 Urine Specific [place] 1.022 (1.000-1.030) 02/11/21 Urine Protein Negative (Negative) 02/11/21 Urine Glucose (UA) Negative (Negative) 02/11/21 Urine Ketones Trace (Negative) H 02/11/21 Urine Blood 1+ (Negative) H 02/11/21 Urine Nitrite Negative (Negative) 02/11/21 Urine Bilirubin Negative (Negative) 02/11/21 Urine Urobilinogen Negative (Negative) 02/11/21 Urine Leukocyte Esterase Negative (Negative) 02/11/21 Urine WBC (Auto) 1-5 /hpf (0-5) 02/11/21 Urine RBC (Auto) 5-10 /hpf (0-4) H 02/11/21 Urine Hyaline Casts (Auto) 0 /lpf (0-5) 02/11/21 Urine Epithelial Cells (Auto) 5-10 /lpf (0-5) H 02/11/21 Urine Bacteria (Auto) Negative (Negative) 02/11/21 Blood Type A Positive 02/11/21 Antibody Screen NEGATIVE 02/11/21 Testing Electrocardiogram Date: 09/08/20 Findings: + NSR @ (71) Stress Test Date: 09/24/20 Type: exercise Negative exercise stress echo/ECG for ischemia 94% MPHR. 7 METS. Mild AV sclerosis. Other Testing Chest CTA (09/08/20): No pulmonary emboli identified. No acute process within the chest.
--- NOTE | 2021-02-27 15:35 | History & Physical Report ---
Date of Service February 27, 2021 Assessment & Plan (1) Herniation of cervical intervertebral disc with radiculopathy: Plan: Assessment severe lumbar spinal stenosis with evidence of far lateral disc herniation L3-L4 on the left. Plan at this time in order to avoid permanent neurologic deficit and allow her to regain some function and recommending an L3- 4 decompression L2-L5 fusion. Patient benefits pros cons alternatives were outlined in detail. History of Present Illness Chief Complaint: Back and leg pain Primary Care Provider: Savannah Lindsey DO This is a 80-year-old female who presents with significant decline in function. She is significant bilateral leg pain left greater than right. It markedly fuentes its her ability to stand or ambulate any distance. She describes falling and deficits particular to the left quadricep. She is found extensive course of nonoperative care. Allergies Allergy/AdvReac Type Severity Reaction Status Date / Time Iodinated Contrast Media Allergy Intermediate IVP dye- Verified 02/12/21 12:01 hives Tetracyclines Allergy Intermediate Hives, Verified 02/12/21 12:01 swelling adhesive Allergy Mild Blisters Verified 02/12/21 12:01 (bandaids/tape for long period) cephalexin [From Keflex] Allergy Unknown Rash Verified 02/12/21 12:01 oxycodone [From Percocet] AdvReac Mild Unknown Verified 02/12/21 12:01 alendronate sodium AdvReac Unknown Dyspepsia Verified 02/12/21 12:01 [From Fosamax] atorvastatin AdvReac Unknown Myalgias Verified 02/12/21 12:01 duloxetine [From Cymbalta] AdvReac Unknown Falls Verified 02/12/21 12:01 lisinopril AdvReac Unknown Cough Verified 02/12/21 12:01 paroxetine [From Paxil] AdvReac Unknown Profuse Verified 02/12/21 12:01 sweating risedronate sodium AdvReac Dyspepsia Verified 02/12/21 12:01 [From Actonel] rosuvastatin [From Crestor] AdvReac Myalgias Verified 02/12/21 12:01 Home Medications Medication Instructions Recorded Confirmed Type cholecalciferol (vitamin D3) 125 5,000 units PO QAM tab 12/18/18 02/12/21 History mcg (5,000 unit) tablet verapamil 120 mg 24 hr 120 mg PO QAM #90 cap 05/20/20 02/12/21 Rx capsule,extended release acetaminophen 500 mg tablet 1,000 mg PO Q6H PRN 08/13/20 02/12/21 History (Tylenol Extra Strength) sumatriptan succinate 50 mg tablet 50 mg PO Q2H PRN 08/13/20 02/12/21 History Vitafusion Otc 2 tab PO QAM 01/16/21 02/12/21 History donepezil 10 mg tablet 10 mg PO QAM #30 tab 02/12/21 02/12/21 Rx sertraline 100 mg tablet 100 mg PO DAILY #90 tab 02/12/21 02/12/21 Rx tramadol 50 mg tablet 50 mg PO Q6H PRN #40 tab 02/12/21 02/12/21 Rx Past Med/Surg History Medical History Chronic kidney disease, stage 3 (moderate) Chronic osteoarthritis DDD (degenerative disc disease), lumbosacral Depression with anxiety Dyslipidemia (high LDL; low HDL) Gastroesophageal reflux controlled Headache, migraine History of nephrolithiasis History of small bowel obstruction remote hx - s/p surgical intervention Hypertension Irritable bowel syndrome Lumbar spinal stenosis MGUS (monoclonal gammopathy of unknown significance) follows with heme/onc (Dr. Saucedo) Mild cognitive impairment Multiple thyroid nodules Osteopenia Poor historian Umbilical hernia Surgical History H/O arthroscopy of knee H/O resection of small bowel History of cervical spinal surgery + hardware present History of colonoscopy History of hernia repair History of hysterectomy History of laparoscopy History of lumbar laminectomy History of toe surgery Rt great toe; hardware present S/P trigger finger release Status post lumbar surgery L4-L5 decompression fusion, L5-S1 hardware removal (11/22/19): Grade view 2, MAC #3, ETT 7.0 at [facility] Family History Mother Coronary heart disease Myocardial infarction Father Coronary heart disease Myocardial infarction Sister Diabetes Coronary heart disease Pacemaker Hx of CABG Post-operative nausea and vomiting Denies family history of Ovarian cancer Prostate cancer Breast cancer Colorectal cancer Social History (Updated 02/12/21 @ 12:09 by Brittany Jha LPN) Smoking Status: Never smoker Second Hand Exposure: No; Hx Alcohol Use: Yes Alcohol type: wine Alcohol Intake Frequency: Monthly or Less Alcohol Intake Frequency Comment: social Hx Substance Use: No Preferred Language: Kinyarwanda Communication Ability: Effective Visual Impairment: No Limitations Hearing Ability: Hard of Hearing Repair Weaver Required: No Beliefs That Will Affect Care: None marital status: Current Living Situation: Spouse current occupational status: retired Feels Safe at Home: Yes Diet Comment: regular caffeine: Yes during the past year weight has: remained stable Dental Care, Regularly: Yes Physical Activity Frequency: Daily Seatbelt Use: always Sunscreen Use: No Assistive Devices: None Physical Exam Physical Exam: Patient is alert and oriented Heart regular rhythm Lungs clear to auscultation On exam she does Exhibit 4-/5 left quadriceps compared to 5 5 on the right. Plantar flexion dorsiflexion intact sensory deficits to the left lower extremity compared to the right.
[~2021-03-02 08:08] MED LIST changes: -CEFAZOLIN 1000MG 1,000 MG/7.5 ML SYR IV SCH; +ceFAZolin 1000MG 1,000 MG/7.5 ML SYR IV SCH
[2021-03-02] MEDS ORDERED: ROCURONIUM BROMIDE 10 MG/ML 5 ML VIAL IV ONE (09:19)
[2021-03-02] MEDS ORDERED: ONDANSETRON INJ 2 MG/ML 2 ML VIAL ONE (09:19)
[2021-03-02] MEDS ORDERED: PROPOFOL IV EMULSION 10 MG/ML 20 ML VIAL IV ONE (09:19)
[2021-03-02] MEDS ORDERED: LIDOCAINE 2% 2 ML VIAL/AMP(20MG/ML) INFIL ONE (09:19)
[2021-03-02] MEDS ORDERED: fentaNYL citrate 100 MCG/2 ML VIAL ONE ×2 (09:20→12:12)
[2021-03-02] MEDS ORDERED: MIDAZOLAM HCL 1 MG/ML 2ML VIAL ONE (09:20)
[2021-03-02] MEDS ORDERED: ONDANSETRON INJ 2 MG/ML 2 ML VIAL IV PRN ×2 (09:51→14:51)
[2021-03-02] MEDS ORDERED: fentaNYL citrate 100 MCG/2 ML VIAL IV PRN (09:51)
[2021-03-02] MEDS ORDERED: LABETALOL HCL IV 5 MG/ML 20ML IV PRN (09:51)
[2021-03-02] MEDS ORDERED: ATROPINE SULFATE 0.1 MG/ML 10ML SYR IV PRN (09:51)
--- NOTE | 2021-03-02 10:41 | History & Physical Bridge Note ---
Date of Service March 02, 2021 History & Physical Bridge Note I have examined the patient, reviewed the History & Physical and in the interval since the performance of the History & Physical I have noted the following changes of clinical significance: no changes noted
[2021-03-02] MEDS ORDERED: CLINDAMYCIN 600 MG/54 ML D5W IV ONE (10:51)
[2021-03-02] MEDS ORDERED: Nursing to Pharmacy Communication SCH (11:00)
[2021-03-02] MEDS ORDERED: BUPIVACAINE 0.5 % 5 MG/1 ML MPF 30ML VIAL ONE (11:05)
[2021-03-02] MEDS ORDERED: EPINEPHrine INJ 1 MG/ML AMP ONE (11:05)
[2021-03-02] MEDS ORDERED: FLOSEAL HEMOSTATIC MATRIX 10ML TOP ONE (12:56)
--- NOTE | 2021-03-02 13:02 | Operative Report ---
Post Operative Report Pre & Post Diagnosis Operation Date: 03/02/21 10:05 Pre-Op Diagnosis: Lumbar spinal stenosis with neurogenic claudication Post-Op Diagnosis: Same I identified the patient and participated in the time-out.: Yes Procedure Operation Date: 03/02/21 10:05 Actual Procedures #1 removal of instrumentation L4-5 L5-S1. #2 exploration of fusion L4-5 L5-S1. #3 lumbar decompression with bilateral medial facetectomies and foraminotomies L2-3 and L3-4. #4 posterior spinal fusion L2-3 L3-4. #5 placement posterior instrumentation L2-S1. #6 interbody fusion L3-L4. #7 placement peek cage 9 x 22 mm at L3-L4. #8 placement locally harvested morselized autograft in the posterior gutters. #9 placement infuse collagen sponge and master graft in the posterior lateral gutters and I factor in the interbody space. Surgeon Marco A Richard, Time Study Statistician Wanda Mccabe Estimated Blood Loss 100 Findings Consistent with Post-Op Diagnosis Specimens None Indications This is a 80-year-old female who presents with marked clinical status and severe leg pain is here for surgical invention. Description of Procedure Patient was met with identified informed consent obtained. Patient was then taken to the operative suite underwent ablation placed in a prone position on the John table atop the [place] frame. All bony prominences well-padded eyes inspected to ensure no external pressure placed upon the. This point the lumbar spine was prepped and draped in a sterile fashion. Sharp dissection with the assistance of Bovie cautery performed down to and exposing the lamina and transverse processes of L2-L3 and instrumentation at L4-5 and S1 levels bilaterally. Then proceeded to move the hardware bilaterally at L4-L5 and S1 exploring the fusion mass noted to be intact. Then performed a complete laminectomy of L3 and L2 including bilateral medial facetectomies and foraminotomies addressing severe spinal stenosis. Pedicle screws were then placed in L2-L3-L4 and S1 levels bilaterally with assistance of fluoroscopy and appropriately sized becka placed. By way of a transforaminal approach on the right complete discectomy of L to L3 was performed endplates curetted to subcortically bone and a 9 x 22 mm peek cage filled I factor tapped in position. Rods were then locked into final position bilaterally. The transverse processes of L2-L3-L4 burred to subcortically bone. Infuse collagen sponge and master graft and local autograft was placed in the posterior gutters. 15 round BELKYS drain inserted. Incision was then closed with 1 Vicryl fascia 2-0 Vicryl subcutaneously and 4 Monocryl for final skin closure. Steri-Strips dressings placed. Patient will continue PACU stable condition. Please note spinal cord monitoring was utilized at the procedure no changes noted. Lastly Wanda Mccabe was present at the entire surgery and while the patient positioning complex portions of the surgery and final skin closure. I attest to the content of the Intraoperative Record and any orders documented therein. Any exceptions are noted below.
[2021-03-02] MEDS ORDERED: SUGAMMADEX SODIUM 200 MG/2 ML VIAL IV ONE (13:03)
[2021-03-02] MEDS ORDERED: ePHEDrine sulfate 50 MG/ML SYR ONE (13:05)
[2021-03-02] MEDS ORDERED: PHENYLEPHRINE 100MCG/ML 5ML SYR ONE (13:05)
--- NOTE | 2021-03-02 13:13 | Fluoroscopy Report ---
FL lumbar spine 2-3V CLINICAL INDICATION: MN ^L3-L4 DECOMPRESSION, L2-L5 FUSION. TECHNIQUE: 3 views were obtained with the C-arm in the OR with the above procedure. Total fluoroscopy time was 17.9 seconds. Total skin dose was 8.93 mGy. Comparison: Comparison is made to MRI lumbar spine 01/02/2021 FINDINGS/IMPRESSION: Multiple intraoperative images are made of lumbar spinal decompression and fusio n. Please correlate with intraoperative fluoroscopy and operative report. ACT 112: Negative or not required by law. Electronically signed by: Charles Carvalho M.D. 03/02/2021 1:12 PM
--- NOTE | 2021-03-02 14:04 | Anesthesiology Progress Note ---
Date of Service March 02, 2021 Anesthesia Post Procedure Vital Signs Vital Signs: Temp Pulse Pulse Resp BP Pulse Ox 03/02/21 13:50 85 14 113/64 100 03/02/21 13:40 82 9 L 132/53 L 99 03/02/21 13:23 97.2 F L 85 16 145/74 H 100 03/02/21 08:33 98.2 F 83 20 172/63 H 98 Pain Intensity Lower Back: Pain Intensity: 5 Transfer of Care Handoff Completed per policy Notes Mental Status: alert / awake / arousable and participated in evaluation Patient Amnestic to Procedure: Yes Nausea / Vomiting: adequately controlled Pain: adequately controlled Airway Patency, RR, SpO2: stable & adequate BP & HR: stable & adequate Hydration State: stable & adequate Anesthetic Complications: no major complications apparent and Pt Satisfied with anesthetic care
[2021-03-02] MEDS ORDERED: SOD PHOSPHATE/SOD BIPHOSPHATE ENEMA 132 ML BTL PR PRN (14:51)
[2021-03-02] MEDS ORDERED: diphenhydrAMINE Capsule 25 MG CAP PO PRN (14:51)
[2021-03-02] MEDS ORDERED: LORazepam 0.5 MG/1 ML VIAL IV PRN (14:51)
[2021-03-02] MEDS ORDERED: METOCLOPRAMIDE HCL INJ 5 MG/ML 2 ML VIAL IV PRN (14:51)
[2021-03-02] MEDS ORDERED: PROMETHAZINE HCL 12.5 MG in SODIUM CHLORIDE 0.9% 50 ML IV PRN (14:51)
[2021-03-02] MEDS ORDERED: HYDROmorphone INJ 0.5 MG/0.5 ML SYR IV PRN (14:51)
[2021-03-02] MEDS ORDERED: ONDANSETRON 4 MG OD TAB PO PRN (14:51)
[2021-03-02] MEDS ORDERED: MAGNESIUM HYDROXIDE SUSP 30 ML UDC PO PRN (14:51)
[2021-03-02] MEDS ORDERED: SUMAtriptan succinate 50 MG TAB PO PRN (14:51)
[2021-03-02] MEDS ORDERED: NALOXONE HCL 0.4 MG/1 ML VIAL/CARP IV PRN (14:51)
[2021-03-02] MEDS ORDERED: ALUMINUM/MAGNESIUM SUSP 30 ML UDC PO PRN (14:51)
[2021-03-02] MEDS ORDERED: DOCUSATE SODIUM 100 MG CAP PO PRN (14:51)
[2021-03-02] MEDS ORDERED: ACETAMINOPHEN 500 MG TAB PO PRN (14:51)
[2021-03-02] MEDS ORDERED: LORazepam 0.5 MG TAB PO PRN (14:51)
[2021-03-02] MEDS ORDERED: hydrOXYzine HCl 25 MG TAB PO PRN (14:51)
[2021-03-02] MEDS ORDERED: bisacodyL 10 MG SUPP PR PRN (14:51)
[2021-03-02] MEDS ORDERED: ACETAMINOPHEN HOME PACK 500 MG TABLET PO PRN (14:51)
[2021-03-02] MEDS ORDERED: HYDROCODONE/ACETAMOPHEN 5/325MG TAB PO PRN (14:51)
[2021-03-02] MEDS ORDERED: ACETAMINOPHEN 1,000 MG/100 ML VIAL IV PRN (14:51)
[2021-03-02] MEDS ORDERED: DO NOT ADMINISTER FLU VACCINE PRN (14:51)
[2021-03-02] MEDS ORDERED: DO NOT ADMINISTER PNEUMOCOCCAL VACCINE PRN (14:51)
[2021-03-02] MEDS ORDERED: FAMOTIDINE 20 MG TAB PO PRN (14:51)
[2021-03-02] MEDS: SODIUM CHLORIDE 0.9% 1000ML 1,000 ML IV SCH (15:17)
[2021-03-02] MEDS: HYDROmorphone INJ 1 MG/ML SYRINGE IV PRN (15:18)
--- NOTE | 2021-03-02 16:16 | Hospitalist Consultation ---
Date of Consultation March 02, 2021 Assessment & Plan (1) Herniation of cervical intervertebral disc with radiculopathy: as per primary service DVT prophylaxis as per primary service (2) Aortic stenosis: Vitals are stable. No active complaints. (3) Chronic kidney disease, stage 3 (moderate): Will monitor Creatinine during hospital stay. (4) Dyslipidemia (high LDL; low HDL): Patient is not taking statins as an outpatient due to myalgias. (5) Depression with anxiety: resume home medications (6) Irritable bowel syndrome: appears controlled at this time. will monitor for symptoms (7) Hypertension: BP at goal. will monitor. resume home meds (8) MGUS (monoclonal gammopathy of unknown significance): f/u with Dr. Saucedo as an outpatient. History of Present Illness Reason for Consultation: medical management. Attending Physician: Marco A Richard DO History of Present Illness 80 yo female with PMH described below presents to the hospital with Lumbar spinal stenosis with neurogenic claudication. Patient is Status post the following procedures:#1 removal of instrumentation L4-5 L5-S1. #2 exploration of fusion L4-5 L5-S1. #3 lumbar decompression with bilateral medial facetectomies and foraminotomies L2-3 and L3-4. #4 posterior spinal fusion L2-3 L3-4. #5 placement posterior instrumentation L2-S1. #6 interbody fusion L3-L4. #7 placement peek cage 9 x 22 mm at L3-L4. #8 placement locally harvested mo rselized autograft in the posterior gutters. #9 placement infuse collagen sponge and master graft in the posterior lateral gutters and I factor in the interbody space. Patient is currently having no new symptoms and is drowsy after the surgery. Allergies Allergy/AdvReac Type Severity Reaction Status Date / Time Iodinated Contrast Media Allergy Intermediate IVP dye- Verified 03/02/21 08:43 hives Tetracyclines Allergy Intermediate Hives, Verified 03/02/21 08:43 swelling adhesive Allergy Mild Blisters Verified 03/02/21 08:43 (bandaids/tape for long period) cephalexin [From Keflex] Allergy Unknown Rash Verified 03/02/21 08:43 oxycodone [From Percocet] AdvReac Mild Unknown Verified 03/02/21 08:43 alendronate sodium AdvReac Unknown Dyspepsia Verified 03/02/21 08:43 [From Fosamax] atorvastatin AdvReac Unknown Myalgias Verified 03/02/21 08:43 duloxetine [From Cymbalta] AdvReac Unknown Falls Verified 03/02/21 08:43 lisinopril AdvReac Unknown Cough Verified 03/02/21 08:43 paroxetine [From Paxil] AdvReac Unknown Profuse Verified 03/02/21 08:43 sweating risedronate sodium AdvReac Dyspepsia Verified 03/02/21 08:43 [From Actonel] rosuvastatin [From Crestor] AdvReac Myalgias Verified 03/02/21 08:43 Home Medications Medication Instructions Recorded Confirmed Type cholecalciferol (vitamin D3) 125 5,000 units PO QAM tab 12/18/18 03/02/21 History mcg (5,000 unit) tablet verapamil 120 mg 24 hr 120 mg PO QAM #90 cap 05/20/20 03/02/21 Rx capsule,extended release acetaminophen 500 mg tablet 1,000 mg PO Q6H PRN 08/13/20 03/02/21 History (Tylenol Extra Strength) sumatriptan succinate 50 mg tablet 50 mg PO Q2H PRN 08/13/20 03/02/21 History Vitafusion Otc 2 tab PO QAM 01/16/21 03/02/21 History donepezil 10 mg tablet 10 mg PO QAM #30 tab 02/12/21 03/02/21 Rx sertraline 100 mg tablet 100 mg PO DAILY #90 tab 02/12/21 03/02/21 Rx tramadol 50 mg tablet 50 mg PO Q6H PRN #40 tab 02/12/21 03/02/21 Rx docusate sodium 100 mg capsule 100 mg PO DAILY PRN 03/02/21 03/02/21 History Patient History Medical History Chronic kidney disease, stage 3 (moderate) Chronic osteoarthritis DDD (degenerative disc disease), lumbosacral Depression with anxiety Dyslipidemia (high LDL; low HDL) Gastroesophageal reflux controlled Headache, migraine History of nephrolithiasis History of small bowel obstruction remote hx s- s/p surgical intervention Hypertension Irritable bowel syndrome Lumbar spinal stenosis MGUS (monoclonal gammopathy of unknown significance) follows with heme/onc (Dr. Saucedo) Mild cognitive impairment Multiple thyroid nodules Osteopenia Poor historian Umbilical hernia Surgical History H/O arthroscopy of knee H/O resection of small bowel History of cervical spinal surgery + hardware present History of colonoscopy History of hernia repair History of hysterectomy History of laparoscopy History of lumbar laminectomy History of toe surgery Rt great toe; hardware present S/P trigger finger release Status post lumbar surgery L4-L5 decompression fusion, L5-S1 hardware removal (11/22/19): Grade view 2, MAC #3, ETT 7.0 at [facility] Family History Mother Coronary heart disease Myocardial infarction Father Coronary heart disease Myocardial infarction Sister Diabetes Coronary heart disease Pacemaker Hx of CABG Post-operative nausea and vomiting Denies family history of Ovarian cancer Prostate cancer Breast cancer Colorectal cancer Social History Smoking Status: Never smoker Second Hand Exposure: No; Do You Dip or Chew Tobacco: No; Hx Alcohol Use: Yes Alcohol type: wine Alcohol Intake Frequency: Monthly or Less Alcohol Intake Frequency Comment: social Hx Substance Use: No Preferred Language: Latvian Communication Ability: Effective Visual Impairment: No Limitations Hearing Ability: Hard of Hearing Composition Board Press Operator Required: No Beliefs That Will Affect Care: None marital status: Current Living Situation: Spouse current occupational status: retired Other Information That Helps Us Care for You: No Feels Safe at Home: Yes Safety Concerns: Feels Safe At This Time Diet Comment: regular caffeine: Yes during the past year weight has: remained stable Dental Care, Regularly: Yes Physical Activity Frequency: Daily Seatbelt Use: always Sunscreen Use: No Assistive Devices: Walker Assistive Devices Comment: BRIDGES Review of Systems Review of Systems: All systems reviewed & are unremarkable except as noted in HPI & below Physical Exam Constitutional: WD/WN, vitals as above Eyes: PERRL, conjunctivae normal, anicteric sclerae ENMT: external ear and nose normal, oropharynx normal Neck: trachea midline, no thyromegaly Respiratory: normal respiratory effort, lungs clear to auscultation Cardiovascular: RRR, no murmur, no edema Gastrointestinal (Abdomen): normal bowel sounds, soft, nontender, no hepatosplenomegaly Musculoskeletal: no cyanosis or clubbing, extremities motor strength 5/5 Skin: no rashes, warm and dry Psychiatric: Orientation: alert, oriented to person and oriented to place Lymphatic: no cervical or axillary lymphadenopathy Results & Data Results & Data ([facility]) Vital Signs (Past 12 Hours) Vital Signs Temp Pulse Pulse Pulse Resp BP Pulse Ox 03/02/21 15:29 36.4 C L 82 14 93/50 L 93 03/02/21 15:21 73 16 116/66 03/02/21 14:53 36.5 C 73 16 115/66 94 03/02/21 14:20 36.5 C 84 16 100/64 96 03/02/21 14:10 36.5 C 84 13 126/50 L 99 03/02/21 14:00 36.5 C 83 10 L 129/61 100 03/02/21 13:50 85 14 113/64 100 03/02/21 13:40 82 9 L 132/53 L 99 03/02/21 13:23 36.2 C L 85 16 145/74 H 100 03/02/21 08:33 36.8 C 83 20 172/63 H 98 PG Care Time/CCT Total # of Minutes Spent Total Time Spent with Patient: Total time spent is greater than 50% in coordi nation of care (as documented) at patient's floor/unit and/or counseling patient: Coding Level of Care Code 19008 Inpt Consult Level 3 Diagnoses Herniation of cervical intervertebral disc with radiculopathy M50.10 Aortic stenosis I35.0 Chronic kidney disease, stage 3 (moderate) N18.3 Dyslipidemia (high LDL; low HDL) E78.5 Depression with anxiety F41.8 Irritable bowel syndrome K58.9 Hypertension I10 MGUS (monoclonal gammopathy of unknown significance) D47.2
[2021-03-02] MEDS: CLINDAMYCIN 600 MG in DEXTROSE 5% 50 ML IV SCH (19:50)
[2021-03-02] MEDS: DOCUSATE SODIUM/SENNA 50/8.6MG TAB PO SCH (21:10)
[2021-03-03] MEDS: SODIUM CHLORIDE 0.9% 1000ML 1,000 ML IV SCH ×2 (01:55→12:44)
[2021-03-03] MEDS: CLINDAMYCIN 600 MG in DEXTROSE 5% 50 ML IV SCH (03:31)
[2021-03-03] MEDS: POLYETHYLENE (MIRALAX) 17 GM PACK PO SCH ×3 (05:26→17:41)
[2021-03-03] MEDS ORDERED: CLINDAMYCIN 600 MG/54 ML BAG IV SCH (06:00)
[2021-03-03 06:36] LABS: Basophils # (auto) 0.02 K/uL (0-0.2); Basophils % (auto) 0.2 %; Eosinophils # (auto) 0.06 K/uL (0-0.5); Eosinophils % (auto) 0.6 %; Hematocrit (blood only) 29.3 % (37-47); Hemoglobin 9.8 g/dL (12.0-16.0); Immature Granulocytes # (auto) 0.02 K/uL (0.00-0.02); Immature Granulocytes % (auto) 0.2 %; Lymphocytes # (auto) 1.47 K/uL (1.2-3.4); Lymphocytes % (auto) 14.2 %; Mean Corpuscular Hemoglobin 31.3 pg (25-34); Mean Corpuscular Hgb Conc 33.4 g/dL (32-36); Mean Corpuscular Volume 93.6 fL (80-100); Mean Platelet Volume 9.9 fL (7.4-10.4); Monocytes # (auto) 1.13 K/uL (0.11-0.59); Monocytes % (auto) 10.9 %; Neutrophils # (auto) 7.62 K/uL (1.4-6.5); Neutrophils % (auto) 73.9 %; Nucleated RBC # (auto) 0.06 K/uL (0-0); Nucleated RBC % (auto) 0.6 %; Platelet Count 226 K/uL (130-400); RDW Standard Deviation 48.1 fL (36.4-46.3); Red Blood Count 3.13 M/uL (4.2-5.4); White Blood Count 10.32 K/uL (4.8-10.8)
[2021-03-03 07:14] LABS: BUN Creatinine Ratio 14.7 (10-20); Calcium 8.2 mg/dl (8.5-10.1); Creatinine Clr Calc Pharmacy 40.1 ml/min; Est GFR (African American) 70.5 ml/min; Est GFR (Non-African American) 60.8 ml/min; Potassium 3.8 mmol/L (3.5-5.1)
[2021-03-03] MEDS ORDERED: [UNRECOGNIZED DRUG - OTHER] PO SCH (09:00)
[2021-03-03] MEDS: SERTRALINE HCL 100 MG TABLET PO SCH (09:18)
[2021-03-03] MEDS: CHOLECALCIFEROL 1,000 UNITS 25 MCG TAB PO SCH (09:18)
[2021-03-03] MEDS: DONEPEZIL HCL 10 MG TAB PO SCH (09:19)
[2021-03-03] MEDS: VERAPAMIL HCL 120 MG TABCR PO SCH (09:19)
[2021-03-03] MEDS: traMADol HCL 50 MG TABLET PO PRN (09:21)
--- NOTE | 2021-03-03 10:41 | Orthopedic Progress Note ---
Date of Service March 03, 2021 Assessment & Plan (1) Neurogenic claudication due to lumbar spinal stenosis: Plan: At this time we will continue physical therapy monitor BELKYS output hopefully discharge home the next day or so. Admission and Anticipated Discharge Date Admission Date: March 02, 2021 Subjective Back pain controlled leg symptoms markedly improved Physical Exam Physical Exam: Patient is in the chair at the bedside. She is good strength testing. Appears comfortable. Results & Data ([facility]) Vital Signs (Past 12 Hours) Vital Signs Temp Pulse Pulse Resp BP Pulse Ox 03/03/21 07:19 36.8 C 82 17 94/55 L 98 03/03/21 05:40 36.8 C 87 16 148/63 H 97 03/03/21 02:00 36.9 C 90 16 104/54 L 97 03/02/21 22:57 36.7 C 87 14 114/64 95
[2021-03-03] MEDS: HYDROmorphone INJ 1 MG/ML SYRINGE IV PRN (12:58)
[2021-03-03] MEDS: DOCUSATE SODIUM/SENNA 50/8.6MG TAB PO SCH (21:33)
[2021-03-04] MEDS: traMADol HCL 50 MG TABLET PO PRN ×2 (07:42→14:49)
[2021-03-04] MEDS: DONEPEZIL HCL 10 MG TAB PO SCH (08:40)
[2021-03-04] MEDS: CHOLECALCIFEROL 1,000 UNITS 25 MCG TAB PO SCH (08:40)
[2021-03-04] MEDS: VERAPAMIL HCL 120 MG TABCR PO SCH (08:40)
[2021-03-04] MEDS: SERTRALINE HCL 100 MG TABLET PO SCH (08:40)
[2021-03-04] MEDS ORDERED: dexAMETHasone 8 MG in SYRINGE 0 ML IV SCH (09:00)
--- NOTE | 2021-03-04 09:47 | Hospitalist Progress Note ---
Date of Service March 04, 2021 Assessment & Plan (1) Herniation of cervical intervertebral disc with radiculopathy: Plan: as per primary service DVT prophylaxis as per primary service (2) Aortic stenosis: Plan: Vitals are stable. No active complaints. (3) Chronic kidney disease, stage 3 (moderate): Plan: Will monitor Creatinine during hospital stay. (4) Dyslipidemia (high LDL; low HDL): Plan: Patient is not taking statins as an outpatient due to myalgias. (5) Depression with anxiety: Plan: resume home medications (6) Irritable bowel syndrome: Plan: appears controlled at this time. will monitor for symptoms (7) Hypertension: Plan: BP at goal. will monitor. resume home meds (8) MGUS (monoclonal gammopathy of unknown significance): Plan: f/u with Dr. Saucedo as an outpatient. (9) Acute blood loss anemia: Plan: Acute blood loss and hemodilution related anemia Hemoglobin dropped from 12.7 to 9.7 likely due to surgery. Hemoglobin has been stable over past 24 hours. will recommend to monitor in about 1 week. Patient is medically cleared for discharge at this time. Medicine will sign off the case. Admission and Anticipated Discharge Date Admission Date: March 02, 2021 Subjective Patient reports feeling well. Sh states yesterday she felt fatigued and not herself, but today she feels more "peppy", and was able to walk around the unit and completed 2 laps. Review of Systems Review of Systems: All systems reviewed & are unremarkable except as noted in HPI & below Physical Exam Constitutional: WD/WN, vitals as above Eyes: PERRL, conjunctivae normal, anicteric sclerae ENMT: external ear and nose normal, oropharynx normal Neck: trachea midline, no thyromegaly Respiratory: normal respiratory effort, lungs clear to auscultation Cardiovascular: RRR, no murmur, no edema Gastrointestinal (Abdomen): normal bowel sounds, soft, nontender, no hepatosplenomegaly Musculoskeletal: no cyanosis or clubbing, extremities motor strength 5/5 Skin: no rashes, warm and dry Psychiatric: Orientation: alert, oriented to person and oriented to place Lymphatic: no cervical or axillary lymphadenopathy Results & Data Results & Data ([facility]) Vital Signs (Past 12 Hours) Vital Signs Temp Pulse Pulse Resp BP BP Pulse Ox 03/04/21 07:20 36.5 C 79 17 127/69 100 03/04/21 04:00 37 C 87 16 94/50 L 96 03/03/21 23:20 36.8 C 85 16 91/52 L 95 PG Care Time/CCT Total # of Minutes Spent Total Time Spent with Patient: Total time spent is greater than 50% in coordination of care (as documented) at patient's floor/unit and/or counseling patient: Coding Level of Care Code 19852 Subseq Hosp Care Lvl 2 Diagnoses Herniation of cervical intervertebral disc with radiculopathy M50.10 Aortic stenosis I35.0 Chronic kidney disease, stage 3 (moderate) N18.3 Dyslipidemia (high LDL; low HDL) E78.5 Depression with anxiety F41.8 Irritable bowel syndrome K58.9 Hypertension I10 MGUS (monoclonal gammopathy of unknown significance) D47.2 Acute blood loss anemia D62 Time Spent (min) 25
[2021-03-04 10:06] LABS: Hemoglobin 9.7 g/dL (12.0-16.0); Mean Corpuscular Hemoglobin 31.2 pg (25-34); Mean Corpuscular Hgb Conc 33.4 g/dL (32-36); Mean Corpuscular Volume 93.2 fL (80-100); Mean Platelet Volume 9.4 fL (7.4-10.4); Platelet Count 219 K/uL (130-400); RDW Coefficient of Variation 13.9 % (11.5-14.5); RDW Standard Deviation 47.7 fL (36.4-46.3); Red Blood Count 3.11 M/uL (4.2-5.4); White Blood Count 11.81 K/uL (4.8-10.8)
--- NOTE | 2021-03-04 11:04 | Discharge Summary ---
Date of Service March 04, 2021 Admission HPI Per Admitting Provider This is a 80-year-old female who presents with significant decline in function. She is significant bilateral leg pain left greater than right. It markedly limits her ability to stand or ambulate any distance. She describes falling and deficits particular to the left quadricep. She is found extensive course of nonoperative care. Principal Diagnosis Lumbar spinal stenosis with neurogenic claudication Discharge Data Allergies Allergy/AdvReac Type Severity Reaction Status Date / Time Iodinated Contrast Media Allergy Intermediate IVP dye- Verified 03/02/21 08:43 hives Tetracyclines Allergy Intermediate Hives, Verified 03/02/21 08:43 swelling adhesive Allergy Mild Blisters Verified 03/02/21 08:43 (bandaids/tape for long period) cephalexin [From Keflex] Allergy Unknown Rash Verified 03/02/21 08:43 oxycodone [From Percocet] AdvReac Mild Unknown Verified 03/02/21 08:43 alendronate sodium AdvReac Unknown Dyspepsia Verified 03/02/21 08:43 [From Fosamax] atorvastatin AdvReac Unknown Myalgias Verified 03/02/21 08:43 duloxetine [From Cymbalta] AdvReac Unknown Falls Verified 03/02/21 08:43 lisinopril AdvReac Unknown Cough Verified 03/02/21 08:43 paroxetine [From Paxil] AdvReac Unknown Profuse Verified 03/02/21 08:43 sweating risedronate sodium AdvReac Dyspepsia Verified 03/02/21 08:43 [From Actonel] rosuvastatin [From Crestor] AdvReac Myalgias Verified 03/02/21 08:43 Consultations 03/02/21 15:01 Consult Hospitalist Routine Procedures Performed Operation Date: 03/02/21 10:05 Actual Procedures p L2-L4 Decompression, L2-S1 Fusion Spinal Cord Monitoring(Not Applicable) - Marco A Richard DO s , L4-S1 Hardware Removal(Not Applicable) - Marco A Richard DO Ordered Studies 03/02/21 10:05 FL lumbar spine 2-3V Routine Hospital Course (1) Neurogenic claudication due to lumbar spinal stenosis: Patient underwent a multilevel lumbar decompression fusion tolerated so was taken to orthopedic for postoperative. Postop day 1 she was up and ambulating. Progressed to postop day #2 BELKYS drain decreased appropriate. Pain well controlled. Excellent strength testing. Subsequently discharged home. Discharge orders instructions from the chart for further view. Total Time Total Time Spent Total Time Spent (In Minutes): 20 minutes Discharge Plan Discharge Items Patient Disposition: Home - Self-Care Reason For Visit: Intervertebral Disc Disorders with Radiculopathy, Discharge Diagnosis: Lumbar spinal stenosis with neurogenic claudication Activity: As commented below Non-emergency contact: Primary Care Provider Call non-emergency contact if: you have any medication questions Follow-up/Referrals: Savannah Lindsey DO [Primary Care Provider] - Diet: Regular Addtl Attending Provider Instructions: ACTIVITY RECOMMENDATIONS: SELF CARE INSTRUCTIONS AFTER THORACIC/LUMBAR FUSIONS 1. You may walk to your tolerance. It is good exercise for your legs and back. Expect some back and intermittent leg aches and pains. 2. You may perform "counter-top" level activities (make a sandwich, oziel with a project, etc.). 3. No bending or lifting of more than 10 pounds or back twisting of any nature (roll like a log when turning in bed). 4. You may ride in a car for 20-30 minutes at a time. No driving until after your first visit with your doctor. 5. Frequent changes of position and restricting sitting to 30 minutes at a time will help limit the amount of back spasms and stiffness you may experience. 6. You may discontinue the use of ambulatory aids (cane, crutches, etc.) once your strength and confidence allow. 7. You may barrel washer machine the shower and let water strike your incision when you arrive home at least once daily. Do not take a tub bath, sit in a hot tub or go into a swimming pool until after your first recheck in the office. SPECIAL CARE INSTRUCTIONS: VERY IMPORTANT TO READ AND REVIEW A. Your surgical incision has been closed with a cosmetic suture under the skin that will dissolve in about 6 weeks. In 14 days, you can use a pair of clean scissors and cut the suture that is left outside of the skin at the ends of your incision. 1. The small skin tapes can be removed 7 days after surgery if they have not fallen off by that point. 2. You may keep the wound open to air as much as possible to promote healing after post-op day number 5 unless told otherwise by your doctor. 3. If you think the wound looks like it is becoming infected (redness or worsening drainage) and/or you are experiencing fever, chill or worsening back pain and muscle spasms, contact the office so that we may evaluate you as soon as possible. B. Complications are uncommon, but please contact us if you have any signs or symptoms of: 1. wound infection (fever higher than 102.5 degrees F, redness, separation of wound, drainage, or increasing pain from the incision) 2. blood clots in legs (pain, swelling, redness and warmth in legs) 3. urinary tract infection (fever higher than 102.5 degrees F, burning upon urination or increased frequency of urination) 4. nerve problems (inability to walk on your toes or heels, numbness, loss of bowel or bladder control) 5. any other symptoms that concern you C. Please call the office at if you have any concerns or questions about your operation or recovery. D. No smoking! Smoking drastically decreases the chance of a solid fusion. E. Do not take any anti-inflammatory medications (Indocin, Advil, Motrin, Aspirin, Naprosyn, etc.) as these may inhibit the chance of a solid fusion. Tylenol is okay to take for pain. MANAGING PAIN AFTER SPINAL SURGERY 1. Narcotic medication is intended for short-term use and will be provided for surgical pain. Surgical pain usually lasts for a period of 4-6 weeks. Narcotic medication includes Percocet, Vicodin, Darvocet, Tylenol #3 or Lortab. 2. Longer-term pain is more appropriately treated with non-narcotic medication such as Tylenol ES. 3. Muscle spasm is not appropriately treated with narcotics. Muscle relaxers such as Soma, Flexeril or Skelaxin can be used along with Tylenol ES. 4. Remember that we all live with some "aches and pains". This is not unusual or uncommon after an injury or as we get older. a. Back pain is expected and may include muscle spasms for 4 to 6 weeks after surgery. The pain should gradually improve. If the pain worsens for no apparent reason, please contact the office. b. Intermittent leg pain may also be experienced and should not be concerned about unless it worsens for no apparent reason. If so, please contact the office. 5. We will provide appropriate medication within the normal guidelines of their prescribed use. We will also be very cautious and aware of potential abuse and extended duration of patients' medication needs. a. Pain medications are for your comfort and to assist with sleep and rest so that the tissue can heal. They are not provided in order to return to normal activity and should not be used through the day. To do so or worsening pain at night can result from ongoing tissue damage and development of tolerance to the prescribed medicine. 6. Please allow 2-3 days to process refills. Prescriptions will not be mailed but must be picked up at the office. FOLLOW UP VISIT: Keep your scheduled follow-up appointment. Any questions, please call the office at . Pending Studies at Discharge: No Stand-Alone Forms: [facility] [employer], Smoking Cessation Medications and DC Order Prescriptions: New tramadol 50 mg tablet 50 mg PO Q6H PRN (Reason: pain, moderate) Qty: 30 RF: 0 hydrocodone-acetaminophen 5-325 mg tablet See Rx Instructions .ROUTE .COMPLEX PRN (Reason: pain) Qty: 30 RF: 0 Continued verapamil 120 mg capsule,ext rel. pellets 24 hr 120 mg PO QAM Qty: 90 RF: 1 cholecalciferol (vitamin D3) 5,000 unit tablet 5,000 units PO QAM RF: 0 donepezil 10 mg tablet 10 mg PO QAM Qty: 30 RF: 2 sertraline 100 mg tablet 100 mg PO DAILY Qty: 90 RF: 3 tramadol 50 mg tablet 50 mg PO Q6H PRN (Reason: pain) Qty: 40 RF: 0 acetaminophen [Tylenol Extra Strength] 500 mg Tablet 1,000 mg PO Q6H PRN (Reason: Headache) RF: 0 sumatriptan succinate 50 mg tablet 50 mg PO Q2H PRN (Reason: Migraine Headache) RF: 0 Vitafusion Otc 2 tab PO QAM RF: 0 docusate sodium 100 mg Capsule 100 mg PO DAILY PRN (Reason: Constipation) RF: 0 Discharge Orders: Discharge Order (Routine); Ordered 03/04/21 Ordered By: Marco A Richard Admission Data Admit Date/Time: 03/02/21 13:05 Attending Provider: Marco A Richard Admit Provider: Marco A Richard Primary Care Provider: Savannah Lindsey Other Providers: Eyad Smith
[2021-03-04 14:35] VITALS: BP 111/57; PULSE 75; TEMP 97.9; O2SAT 97
== END 2021-03-04 15:53 | disposition home or self-care (01) | DRG 454 ==
LOC: ASU 08:08 → 3E 13:05